=== PATIENT | male | born 1930 | race Two or more races ===

== ENCOUNTER 2020-05-13 15:59 | Inpatient (IN) | payer MEDICARE, MEDICAID ==
[~2020-05-13] VITALS: Ht 160 cm; Wt 63.5 kg
[2020-05-13] MEDS ORDERED: dilTIAZem HCl 25mg/5ml Inj IVP ONE ×2 (16:15→18:15)
[2020-05-13 16:20] VITALS: BP 138/98
--- NOTE | 2020-05-13 16:45 | Emergency Room Report ---
History of Present Illness General Chief Complaint: Altered Level of Consciousness Source: Patient, Family Member, EMS Present Illness HPI Patient has been ill for 1 week. His son came from out of town to help take care of him. Usually he is able to ambulate to the bathroom at night the last night he was confused and could not. His son states that the patient could not understand him. He has been refusing to go into the hospital. Today he was still confused so the son called 911. The son is concerned that his father was suffering from a stroke acutely. The patient is unable to answer questions at this time. The patient is been complaining of shortness of breath. Apparently he has been denying any pain. This is according to his son. According to younger son. h/o aortic stenosis and mitral valve disease. EF 25- 30%. Not taking meds (except for lasix) for 2 weeks. Status post coronary artery bypass graft surgery. Hypercholesterolemia Patient also has a history of thyroid disease on Synthroid. Allergies: Coded Allergies: No Known Allergies (Unverified , 05/13/20) COVID-19 Screening Contact w/high risk pt: No Experienced COVID-19 symptoms?: No COVID-19 Testing performed SLUBBER HAND: No Patient History Limited by: medical condition Past Medical History: CHF, other - Aortic stenosis Past Surgical History: CABG Social History Narrative and living with Reviewed Nursing Documentation: PMH: Agreed; PSxH: Agreed Nursing Documentation-PMH Past Medical History: No History, Except For Hx Cardiac Problems: Yes - cardiac surgery 20 years ago, CHF Hx Hypertension: Yes Review of Systems All Other Systems: limited Physical Exam Vital Signs Date Time Temp Pulse Resp B/P (MAP) Pulse Ox O2 Delivery O2 Flow Rate FiO2 05/13/20 16:02 98.1 130 20 138/98 (111) 98 Nasal Cannula Sp02 EP Interpretation: reviewed, normal - However on repeat oximetry is low as interpreted by me General Appearance: moderate distress Head: normocephalic, atraumatic Eyes: bilateral eye PERRL, bilateral eye EOMI, bilateral eye other - Patient crusting bilaterally ENT: dry mucus membranes Respiratory: respiratory distress, accessory muscle use, crackles Cardiovascular #1: tachycardia, irregularly irregular, edema - Trace bilaterally Cardiovascular #2: 2+ radial (R) Gastrointestinal: non tender, soft, decreased bowel sounds Musculoskeletal: back normal, no calf tenderness Neurologic: alert - But confused, sensory intact, motor weakness - Generalized Procedures Critical Care Time Critical Care Time Total Critical Care Time: 115 min bedside evaluation and treatment excludes procedures (EKG). Reason for critical care: Sepsis, pneumonia, rapid atrial fibrillation, repeat evaluations, respiratory insufficiency requiring BiPAP, discussion with family Possible complications: hypotension, hypertension, [place], shock, arrhythmias, metabolic acidosis, end organ damage, respiratory failure. Interventions: Diltiazem, antibiotics, sepsis resuscitation, repeat evaluations, history from family, repeat fluid boluses in the face of a history of congestive heart failure Course: Patient presents in moderate distress with atrial fibrillation with rapid ventricular response rate and altered mental status with hypoxia. Distal diltiazem administered with control of rate. Patient placed on oxygen and fluid bolus and antibiotics initiated for the possibility of pneumonia. Heart rate again increased and diltiazem repeated. Patient reevaluated by me and appearing mottled and with respiratory difficulty. BiPAP initiated. Increased level of care ordered. Discussion with son reveals history of aortic stenosis with e jection fraction of 25 to 30%. Lactate returns elevated. Second fluid bolus administered however due to the history of congestive heart failure and aortic stenosis judicious fluid replacement ordered. Patient improved on BiPAP. Patient admitted to ICU. Discussion with family a second time. Covid test initially reported as positive but then with rechecking lab was actually neg ative. Consultations: nursing staff, EMS, family, respiratory therapy, admitting physician Performed by: Dr. Godwin Tolerated well condition = critical Medical Decision Making Diagnostic Impression: Primary Impression: Hypoxia Additional Impressions: Rapid atrial fibrillation Altered level of consciousness Aortic stenosis Qualified Codes: I35.0 - Nonrheumatic aortic (valve) stenosis New onset atrial fibrillation COVID-19 ruled out by laboratory testing Pneumonia Qualified Codes: J18.9 - Pneumonia, unspecified organism ER Course Patient presents with hypoxia altered mental status and rapid heart rate. Differential includes acute myocardial infarction, congestive heart failure, pulmonary embolus, COVID-19 amongst others. Patient evaluated with EKG, chest x-ray and labs. Patient has dry mucous membranes and a fluid bolus will be administered. In addition patient will receive diltiazem IV patient is placed on a quality assurance monitor final. 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 EKG with atrial fibrillation with rapid ventricular response with PVCs. After diltiazem heart rate to 84. Blood pressure 141/81, respiratory rate of 28 with a pulse oximetry is 92% 1645 Chest x-ray with possible right-sided infiltrate. Antibiotics ordered. Labs with elevated white count. Many labs pending. Patient in more distress. HR again elevated. Mottled. BiPAP ordered. (Patient removed mask - restraints ordered). Still responsive. Nonfocal neurologic exam. Sepsis reevaluation 1615 Rate better 80s-90s post repeat diltiazem. 1822 ABG with metabolic acidosis. Improved on BiPAP, not mottled - less work of breathing. 1755 Lactate elevated (lab return 1800) Bolus 500 more. Not 30 ml/kg as elevated BNP and history of congestive heart failure. COVID + return. Dexamethasone ordered. Actually lab resulted COVID as negative (unsure where miscommunication was). Patient greatly improved on BiPAP. Patient admitted to ICU. Laboratory Tests Test 05/13/20 17:30 05/13/20 18:11 05/13/20 18:48 05/13/20 20:02 White Blood Count 12.0 K/UL (4.8-10.8) H Red Blood Count 4.39 M/UL (4.70-6.10) L Hemoglobin 13.3 G/DL (14.2-18.0) L Hematocrit 41.1 % (42.0-52.0) L Mean Corpuscular Volume 94 FL (80-99) Mean Corpuscular Hemoglobin 30.2 PG (27.0-31.0) Mean Corpuscular Hemoglobin Concent 32.3 G/DL (32.0-36.0) Red Cell Distribution Width 14.0 % (11.6-14.8) Platelet Count 188 K/UL (150-450) Mean Platelet Volume 7.7 FL (6.5-10.1) Neutrophils (%) (Auto) 80.6 % (45.0-75.0) H Lymphocytes (%) (Auto) 6.4 % (20.0-45.0) L Monocytes (%) (Auto) 12.7 % (1.0-10.0) H Eosinophils (%) (Auto) 0.1 % (0.0-3.0) Basophils (%) (Auto) 0.3 % (0.0-2.0) Prothrombin Time 14.0 SEC (9.30-11.50) H Prothrombin Time INR 1.3 (0.9-1.1) H Activated Partial Thromboplast Time 27 SEC (23-33) Sodium Level 133 MMOL/L (136-145) L Potassium Level 3.9 MMOL/L (3.5-5.1) Chloride Level 101 MMOL/L (98-107) Carbon Dioxide Level 20 MMOL/L (21-32) L Anion Gap 12 mmol/L (5-15) Blood Urea Nitrogen 51 mg/dL (7-18) H Creatinine 1.7 MG/DL (0.55-1.30) H Estimated Glomerular Filtration Rate 38.2 mL/min (>60) Glucose Level 117 MG/DL (74-106) H Lactic Acid Level 4.70 mmol/L (0.4-2.0) H 4.10 mmol/L (0.66-2.22) H Calcium Level 8.5 MG/DL (8.5-10.1) Magnesium Level 2.3 MG/DL (1.8-2.4) Ferritin 103 NG/ML (8-388) Total Bilirubin 1.4 MG/DL (0.2-1.0) H Direct Bilirubin 0.4 MG/DL (0.0-0.3) H Aspartate Amino Transferase (AST) 251 U/L (15-37) H Alanine Aminotransferase (ALT) 363 U/L (12-78) H Alkaline Phosphatase 128 U/L (46-116) H Lactate Dehydrogenase 320 U/L (81-234) H Total Creatine Kinase 64 U/L (26-308) Troponin I 0.062 ng/mL (0.000-0.056) C-Reactive Protein, Quantitative 5.5 mg/dL (0.00-0.90) H Pro-B-Type Natriuretic Peptide 90463 pg/mL (0-125) H Total Protein 7.0 G/DL (6.4-8.2) Albumin 3.2 G/DL (3.4-5.0) L Globulin 3.8 g/dL Albumin/Globulin Ratio 0.8 (1.0-2.7) L Lipase 139 U/L (73-393) Arterial Blood pH 7.274 (7.350-7.450) Arterial Blood Partial Pressure CO2 37.7 mmHg (35.0-45.0) Arterial Blood Partial Pressure O2 87.3 mmHg (75.0-100.0) Arterial Blood HCO3 17.1 mmol/L (22.0-26.0) *L Arterial Blood Oxygen Saturation 94.6 % (95-100) L Arterial Blood Base Excess -9.0 (-2-2) L Amaury Test Positive Urine Color Pale yellow Urine Appearance Slightly cloudy Urine pH 5 (4.5-8.0) Urine Specific [place] 1.020 (1.005-1.035) Urine Protein 2+ (NEGATIVE) H Urine Glucose (UA) Negative (NEGATIVE) Urine Ketones 1+ (NEGATIVE) H Urine Blood Negative (NEGATIVE) Urine Nitrite Negative (NEGATIVE) Urine Bilirubin Negative (NEGATIVE) Urine Urobilinogen 1 MG/DL (0.0-1.0) H Urine Leukocyte Esterase 1+ (NEGATIVE) H Urine RBC 0 /HPF (0 - 0) Urine WBC 0-2 /HPF (0 - 0) Urine Squamous Epithelial Cells Occasional /LPF Urine Bacteria Occasional /HPF (NONE) Urine Hyaline Casts 5-10 /LPF (NONE) H Test 05/13/20 22:40 Arterial Blood pH 7.400 (7.350-7.450) Arterial Blood Partial Pressure CO2 30.5 mmHg (35.0-45.0) L Arterial Blood Partial Pressure O2 240.5 mmHg (75.0-100.0) H Arterial Blood HCO3 18.5 mmol/L (22.0-26.0) L Arterial Blood Oxygen Saturation 99.0 % (95-100) Arterial Blood Base Excess -5.2 (-2-2) L Amaury Test Microbiology Date/Time Source Procedure Growth Status 05/13/20 18:20 Nasopharynx SARS-CoV-2 RdRp Gene Assay - Final Complete EKG Diagnostic Results Rate: tachycardiac Rhythm: other - Atrial fibrillation rate [address]-T wave changes Rhythm Strip Diag. Results EP Interpretation: yes Rhythm: other - rapid a fib and pvcs rate 124 Chest X-Ray Diagnostic Results Chest X-Ray Diagnostic Results : Chest X-Ray Ordered: Yes # of Views/Limited/Complete: 1 View Indication: Shortness of Breath EP Interpretation: Yes Interpretation: no pneumothorax, other - RLL infiltrate vs CHF, cardiomegally Impression: Other Electronically Signed by: Electronically signed by Phi Godwin MD Last Vital Signs Date Time Temp Pulse Resp B/P (MAP) Pulse Ox O2 Delivery O2 Flow Rate FiO2 05/14/20 00:00 120 25 110/71 (84) 97 05/14/20 00:00 Bi-pap 80.0 05/13/20 23:00 98.0 05/13/20 22:50 70 Status: improved Disposition: ADMITTED INPATIENT Condition: Critical Phi Godwin MD May 13, 2020 16:45
[2020-05-13] MEDS ORDERED: Azithromycin 500 MG in NS 275 ML IV ONE (17:00)
[2020-05-13] MEDS ORDERED: cefTRIAXone 1 GM in NS 55 ML IVPB ONE (17:00)
--- NOTE | 2020-05-13 17:09 | Diagnostic Imaging Report ---
Indication: Shortness of breath Technique: One view of the chest Comparison: None Findings: There is extensive dense consolidation involving the right mid and lower lung. There are bilateral pleural effusions, right greater than left. There is mild interstitial congestion bilaterally. Impression: Dense consolidation involving much of the right middle and lower lung, likely pneumonia Right greater than left pleural effusions Mild interstitial edema
[2020-05-13] MEDS ORDERED: FUROSEMIDE40 MG ORAL (17:58)
[2020-05-13] MEDS ORDERED: VITAMIN D325 MC1 PO (17:58)
[2020-05-13] MEDS ORDERED: CLOPIDOGREL75 MG ORAL (17:58)
[2020-05-13] MEDS ORDERED: CRESTOR10 M2 ORAL (17:58)
[2020-05-13] MEDS ORDERED: PROSCAR5 MG ORAL (17:58)
[2020-05-13] MEDS ORDERED: LEVOTHYROXINE125 MCG ORAL (17:58)
[2020-05-13] MEDS ORDERED: METOPROLOL TART25 MG ORAL (17:58)
[2020-05-13] MEDS ORDERED: MIRTAZAPINE15 M3 ORAL (17:58)
[2020-05-13 19:04] LABS: APPEARANCE,URINE SLIGHTLY CLOUDY; BILIRUBIN, URINE NEGATIVE (NEGATIVE); GLUCOSE, URINE (UA) NEGATIVE (NEGATIVE); KETONES,URINE 1+ (NEGATIVE); LEUKOCYTE ESTERASE ,URINE 1+ (NEGATIVE); NITRITE,URINE NEGATIVE (NEGATIVE); PH,URINE 5 (4.5-8.0); PROTEIN,URINE 2+ (NEGATIVE); UROBILINOGEN,URINE 1 MG/DL (0.0-1.0)
[2020-05-13 19:08] LABS: BASOPHILS % (AUTO) 0.3 % (0.0-2.0); EOSINOPHILS % (AUTO) 0.1 % (0.0-3.0); HEMATOCRIT 41.1 % (42.0-52.0); HEMOGLOBIN 13.3 G/DL (14.2-18.0); LYMPHOCYTES % (AUTO) 6.4 % (20.0-45.0); MEAN CORPUSCULAR VOLUME 94 FL (80-99); MONOCYTES % (AUTO) 12.7 % (1.0-10.0); NEUTROPHILS % (AUTO) 80.6 % (45.0-75.0); PLATELET COUNT 188 K/UL (150-450); RED BLOOD COUNT 4.39 M/UL (4.70-6.10)
[2020-05-13 19:09] LABS: COLOR,URINE PALE YELLOW
[2020-05-13 19:15] VITALS: BP 134/87
[2020-05-13 19:21] LABS: ANION GAP 12 mmol/L (5-15); BLOOD UREA NITROGEN 51 mg/dL (7-18); CALCIUM 8.5 MG/DL (8.5-10.1); CARBON DIOXIDE 20 MMOL/L (21-32); CHLORIDE 101 MMOL/L (98-107); CREATININE 1.7 MG/DL (0.55-1.30); POTASSIUM 3.9 MMOL/L (3.5-5.1); SODIUM 133 MMOL/L (136-145)
[2020-05-13 19:23] LABS: INR 1.3 (0.9-1.1)
[2020-05-13] MEDS ORDERED: dexAMETHasone 10mg/ml Inj IV ONE (19:30)
[2020-05-13 19:34] LABS: ALANINE AMINOTRANSFERASE 363 U/L (12-78); ALBUMIN 3.2 G/DL (3.4-5.0); ALBUMIN/GLOBULIN RATIO 0.8 (1.0-2.7); ALKALINE PHOSPHATASE 128 U/L (46-116); ASPARTATE AMINO TRANSFERASE 251 U/L (15-37); BILIRUBIN,TOTAL 1.4 MG/DL (0.2-1.0); CREATINE KINASE 64 U/L (26-308); FERRITIN 103 NG/ML (8-388); LACTATE DEHYDROGENASE 320 U/L (81-234)
[2020-05-13 19:42] LABS: BILIRUBIN,DIRECT 0.4 MG/DL (0.0-0.3)
[2020-05-13 21:08] VITALS: BP 120/77
[2020-05-13 22:00] VITALS: BP 106/65
[2020-05-13 23:00] VITALS: BP 106/73
[2020-05-13] MEDS ORDERED: Heparin 5000 units/ml inj IV SCH (23:00)
[2020-05-13] MEDS ORDERED: Heparin 25,000u/D5W 500ml 500 ML IV SCH (23:00)
[2020-05-14] VITALS (34 sets, daily range): BP systolic 72–169; BP diastolic 35–102
[2020-05-14] MEDS ORDERED: Piperacillin/Tazobactam 2.25 GM in NS 55 ML IVPB SCH ×2
[2020-05-14] MEDS: Ipratropium 0.02% Inh Soln 2.5ml UD HHN SCH ×4 (01:27→18:50)
[2020-05-14] MEDS ORDERED: Vancomycin 1gm in D5W 275ml IVPB ONE (02:00)
[2020-05-14 05:34] LABS: HEMATOCRIT 41.6 % (42.0-52.0); HEMOGLOBIN 12.8 G/DL (14.2-18.0); MEAN CORPUSCULAR VOLUME 97 FL (80-99); PLATELET COUNT 159 K/UL (150-450); RED BLOOD COUNT 4.31 M/UL (4.70-6.10); RED CELL DISTRIBUTION WIDTH 14.2 % (11.6-14.8); WHITE BLOOD COUNT 9.2 K/UL (4.8-10.8)
[2020-05-14 06:03] LABS: ALBUMIN 2.9 G/DL (3.4-5.0); ALBUMIN/GLOBULIN RATIO 0.9 (1.0-2.7); BILIRUBIN,TOTAL 1.2 MG/DL (0.2-1.0); CALCIUM 7.9 MG/DL (8.5-10.1); CREATININE 1.9 MG/DL (0.55-1.30)
[2020-05-14 06:09] LABS: BILIRUBIN,DIRECT 0.5 MG/DL (0.0-0.3)
[2020-05-14] MEDS: Heparin 25,000u/D5W 500ml 500 ML IV SCH (07:17)
--- NOTE | 2020-05-14 08:21 | Neurology Progress Note ---
Interim History Interim History Interim History Pt admitted for AMS. per report he has been confused for 2 days. Pt is tachy, afib RVR, heparin ordered. h/o aortic stenosis and mitral valve disease. EF 25-30%. Not taking meds (except for lasix) for 2 weeks. Status post coronary artery bypass graft surgery. pt on restraints, slurring, non focal Objective Physical Exam Last Vital Signs Date Time Temp Pulse Resp B/P (MAP) Pulse Ox O2 Delivery O2 Flow Rate FiO2 05/14/20 06:00 116 15 101/84 (90) 05/14/20 04:00 Bi-pap 80.0 05/14/20 04:00 98 05/14/20 04:00 60 05/14/20 03:00 97.6 Laboratory Tests Test 05/13/20 17:30 05/13/20 18:11 05/13/20 18:48 05/13/20 20:02 White Blood Count 12.0 K/UL (4.8-10.8) H Red Blood Count 4.39 M/UL (4.70-6.10) L Hemoglobin 13.3 G/DL (14.2-18.0) L Hematocrit 41.1 % (42.0-52.0) L Mean Corpuscular Volume 94 FL (80-99) Mean Corpuscular Hemoglobin 30.2 PG (27.0-31.0) Mean Corpuscular Hemoglobin Concent 32.3 G/DL (32.0-36.0) Red Cell Distribution Width 14.0 % (11.6-14.8) Platelet Count 188 K/UL (150-450) Mean Platelet Volume 7.7 FL (6.5-10.1) Neutrophils (%) (Auto) 80.6 % (45.0-75.0) H Lymphocytes (%) (Auto) 6.4 % (20.0-45.0) L Monocytes (%) (Auto) 12.7 % (1.0-10.0) H Eosinophils (%) (Auto) 0.1 % (0.0-3.0) Basophils (%) (Auto) 0.3 % (0.0-2.0) Prothrombin Time 14.0 SEC (9.30-11.50) H Prothromb Time International Ratio 1.3 (0.9-1.1) H Activated Partial Thromboplast Time 27 SEC (23-33) Sodium Level 133 MMOL/L (136-145) L Potassium Level 3.9 MMOL/L (3.5-5.1) Chloride Level 101 MMOL/L (98-107) Carbon Dioxide Level 20 MMOL/L (21-32) L Anion Gap 12 mmol/L (5-15) Blood Urea Nitrogen 51 mg/dL (7-18) H Creatinine 1.7 MG/DL (0.55-1.30) H Estimat Glomerular Filtration Rate 38.2 mL/min (>60) Glucose Level 117 MG/DL (74-106) H Lactic Acid Level 4.70 mmol/L (0.4-2.0) H 4.10 mmol/L (0.66-2.22) H Calcium Level 8.5 MG/DL (8.5-10.1) Magnesium Level 2.3 MG/DL (1.8-2.4) Ferritin 103 NG/ML (8-388) Total Bilirubin 1.4 MG/DL (0.2-1.0) H Direct Bilirubin 0.4 MG/DL (0.0-0.3) H Aspartate Amino Transf (AST/SGOT) 251 U/L (15-37) H Alanine Aminotransferase (ALT/SGPT) 363 U/L (12-78) H Alkaline Phosphatase 128 U/L (46-116) H Lactate Dehydrogenase 320 U/L (81-234) H Total Creatine Kinase 64 U/L (26-308) Troponin I 0.062 ng/mL (0.000-0.056) C-Reactive Protein, Quantitative 5.5 mg/dL (0.00-0.90) H Pro-B-Type Natriuretic Peptide 11576 pg/mL (0-125) H Total Protein 7.0 G/DL (6.4-8.2) Albumin 3.2 G/DL (3.4-5.0) L Globulin 3.8 g/dL Albumin/Globulin Ratio 0.8 (1.0-2.7) L Lipase 139 U/L (73-393) Arterial Blood pH 7.274 (7.350-7.450) Arterial Blood Partial Pressure CO2 37.7 mmHg (35.0-45.0) Arterial Blood Partial Pressure O2 87.3 mmHg (75.0-100.0) Arterial Blood HCO3 17.1 mmol/L (22.0-26.0) *L Arterial Blood Oxygen Saturation 94.6 % (95-100) L Arterial Blood Base Excess -9.0 (-2-2) L Amaury Test Positive Urine Color Pale yellow Urine Appearance Slightly cloudy Urine pH 5 (4.5-8.0) Urine Specific [place] 1.020 (1.005-1.035) Urine Protein 2+ (NEGATIVE) H Urine Glucose (UA) Negative (NEGATIVE) Urine Ketones 1+ (NEGATIVE) H Urine Blood Negative (NEGATIVE) Urine Nitrite Negative (NEGATIVE) Urine Bilirubin Negative (NEGATIVE) Urine Urobilinogen 1 MG/DL (0.0-1.0) H Urine Leukocyte Esterase 1+ (NEGATIVE) H Urine RBC 0 /HPF (0 - 0) Urine WBC 0-2 /HPF (0 - 0) Urine Squamous Epithelial Cells Occasional /LPF Urine Bacteria Occasional /HPF (NONE) Urine Hyaline Casts 5-10 /LPF (NONE) H Test 05/13/20 22:40 05/14/20 05:00 Arterial Blood pH 7.400 (7.350-7.450) Arterial Blood Partial Pressure CO2 30.5 mmHg (35.0-45.0) L Arterial Blood Partial Pressure O2 240.5 mmHg (75.0-100.0) H Arterial Blood HCO3 18.5 mmol/L (22.0-26.0) L Arterial Blood Oxygen Saturation 99.0 % (95-100) Arterial Blood Base Excess -5.2 (-2-2) L Amaury Test White Blood Count 9.2 K/UL (4.8-10.8) Red Blood Count 4.31 M/UL (4.70-6.10) L Hemoglobin 12.8 G/DL (14.2-18.0) L Hematocrit 41.6 % (42.0-52.0) L Mean Corpuscular Volume 97 FL (80-99) Mean Corpuscular Hemoglobin 29.8 PG (27.0-31.0) Mean Corpuscular Hemoglobin Concent 30.9 G/DL (32.0-36.0) L Red Cell Distribution Width 14.2 % (11.6-14.8) Platelet Count 159 K/UL (150-450) Mean Platelet Volume 9.1 FL (6.5-10.1) Neutrophils (%) (Auto) % (45.0-75.0) Lymphocytes (%) (Auto) % (20.0-45.0) Monocytes (%) (Auto) % (1.0-10.0) Eosinophils (%) (Auto) % (0.0-3.0) Basophils (%) (Auto) % (0.0-2.0) Neutrophils % (Manual) Pending Lymphocytes % (Manual) Pending Platelet Estimate Pending Platelet Morphology Pending Activated Partial Thromboplast Time 122 SEC (23-33) H D-Dimer 6.64 mg/L FEU (0.00-0.49) H Sodium Level 137 MMOL/L (136-145) Potassium Level 4.0 MMOL/L (3.5-5.1) Chloride Level 104 MMOL/L (98-107) Carbon Dioxide Level 22 MMOL/L (21-32) Anion Gap 11 mmol/L (5-15) Blood Urea Nitrogen 51 mg/dL (7-18) H Creatinine 1.9 MG/DL (0.55-1.30) H Estimat Glomerular Filtration Rate 33.6 mL/min (>60) Glucose Level 174 MG/DL (74-106) H Lactic Acid Level 1.90 mmol/L (0.4-2.0) Calcium Level 7.9 MG/DL (8.5-10.1) L Total Bilirubin 1.2 MG/DL (0.2-1.0) H Direct Bilirubin 0.5 MG/DL (0.0-0.3) H Aspartate Amino Transf (AST/SGOT) 152 U/L (15-37) H Alanine Aminotransferase (ALT/SGPT) 285 U/L (12-78) H Alkaline Phosphatase 118 U/L (46-116) H Troponin I 0.056 ng/mL (0.000-0.056) Total Protein 6.3 G/DL (6.4-8.2) L Albumin 2.9 G/DL (3.4-5.0) L Globulin 3.4 g/dL Albumin/Globulin Ratio 0.9 (1.0-2.7) L Thyroid Stimulating Hormone (TSH) 0.672 uiU/mL (0.358-3.740) Head: normocophalic Neck: no rigidity EENT: benign Neurologic Exam Objective alert, confused, tangential slurring non focal on restraints Impression/Recommendations Problems: (1) Pneumonia (2) New onset atrial fibrillation (3) COVID-19 ruled out by laboratory testing (4) Aortic stenosis (5) Hypoxia (6) Altered level of consciousness (7) Rapid atrial fibrillation Diagnostic Impression Encephalopathy, likely metabolic, rule out vascular given afib RVR non focal exam Afib cont heparin iv mri brain tele cont atb fu cultures Kj Quinteros MD May 14, 2020 08:21
[2020-05-14] MEDS ORDERED: dilTIAZem Premix 125mg/125ml 125 ML IVPB SCH ×2 (09:15→14:00)
[2020-05-14] MEDS: Aspirin EC 81mg tab ORAL SCH (09:34)
[2020-05-14] MEDS: Levothyroxine 125mcg tab ORAL SCH (09:34)
[2020-05-14] MEDS: Zoysn 3.37gm in NS 100ML IVPB SCH ×2 (09:38→18:09)
[2020-05-14 10:03] LABS: PHOSPHORUS 4.3 MG/DL (2.5-4.9)
--- NOTE | 2020-05-14 10:55 | History and Physical ---
Erika An ORAL SURGERY ASSISTANT 05/14/20 1055: History of Present Illness General Date patient seen: May 14, 2020 Time patient seen: 09:30 Reason for Hospitalization: Altered Level of Consciousness Present Illness HPI 89 years old male with past medical history of congestive heart failure, hypertension, cardiac surgery years ago, BPH, was brought by paramedics due to altered mental status. Last night patient was confused and was not able to ambulate to the bathroom. Usually he was able to do so. Patient was confused in the morning as well as per his son, patient did not understand what his son was asking him He refused to go to the hospital , and son subsequently called paramedics. Upon evaluation patient was tachycardic with heart rate 130 and hypoxic , in respiratory distress . Patient initially was placed on nasal cannula , but due to increased work of breathing, later was placed on the BiPAP. Laboratory work-up revealed leukocytosis WBC 12, hemoglobin 13.3 , hematocrit 41.1, platelet count 188. ABG revealed metabolic acidosis with pH 7.27, bicarb 17.1. BUN 51, creatinine 1.7. Sodium 133. CO2 20. Glucose 117. Troponin minimally elevated 0.062 ECG with A fib with RVR Urinalysis revealed +2 protein, +1 leukocyte esterase , no evidence of UTI. Chest x-ray revealed dense consolidation involving much of the right middle and lower lung, likely pneumonia ; right greater than the left pleural effusion ; mild interstitial edema. Rapid COVID-19 was negative. Patient admitted to ICU for further management. Allergies: Coded Allergies: No Known Allergies (Unverified , 05/13/20) COVID-19 Screening Contact w/high risk pt: No Experienced COVID-19 symptoms?: No Medication History Scheduled Cholecalciferol (Vitamin D3) (Vitamin D3*), 25 MCG PO DAILY, (Reported) Clopidogrel* (Clopidogrel*), 75 MG ORAL DAILY, (Reported) Finasteride* (Proscar*), 5 MG ORAL DAILY, (Reported) Furosemide* (Lasix*), 40 MG ORAL DAILY, (Reported) Levothyroxine Sodium* (Levothyroxine Sodium*), 100 MCG ORAL DAILY, (Reported) Metoprolol Tartrate* (Metoprolol Tartrate*), 25 MG ORAL EVERY 12 HOURS, (Reported) Mirtazapine* (Mirtazapine*), 45 MG ORAL BEDTIME, (Reported) Rosuvastatin Calcium* (Crestor*), 5 MG ORAL DAILY, (Reported) Patient History History Provided By: Medical Record Healthcare decision maker Resuscitation status Fukk code Advanced Directive on File Review of Systems ROS Narrative unable to obtain due to patient's AMS Physical Exam General Appearance: other - on BiPAP 12 FiO2 60% [place]alander speaking elderly male, alert, responsive to simple wuestions but confused overall , in mild resp distress Lines, tubes and drains: peripheral HEENT: normocephalic, atraumatic, anicteric Neck: supple Respiratory/Chest: no accessory muscle use, respiratory distress - mild , other - scattered rhoncho R>L Cardiovascular/Chest: irregularly irregular - A fib with RVR Abdomen: normal bowel sounds, non tender, soft Genitourinary/Rectal: triana Extremities: non-tender, normal inspection, no calf tenderness, normal capillary refill Skin Exam: warm/dry Neurologic: abnormal gait, alert, responsive - to simple questions, forgetful and confused Musculoskeletal: atrophy - BLE Last 24 Hour Vital Signs Date Time Temp Pulse Resp B/P (MAP) Pulse Ox O2 Delivery O2 Flow Rate FiO2 05/14/20 09:34 142 140/88 05/14/20 07:24 152 33 91 60 05/14/20 06:00 116 15 101/84 (90) 05/14/20 05:00 120 18 105/81 (89) 05/14/20 04:00 Bi-pap 80.0 05/14/20 04:00 108 05/14/20 04:00 128 24 100/58 (72) 98 05/14/20 04:00 60 05/14/20 03:00 97.6 116 17 122/86 (98) 99 05/14/20 02:49 124 21 98 60 05/14/20 02:00 116 24 117/85 (96) 98 05/14/20 01:28 115 22 98 Bi-Pap 70 119 23 98 70 05/14/20 01:00 121 25 127/99 (108) 97 05/14/20 00:00 70 05/14/20 00:00 120 25 110/71 (84) 97 05/14/20 00:00 Bi-pap 80.0 05/13/20 23:00 98.0 110 21 106/73 (84) 98 05/13/20 22:50 113 21 98 70 05/13/20 22:00 80 05/13/20 22:00 115 22 106/65 (79) 96 05/13/20 22:00 119 29 106/65 (79) 99 05/13/20 21:16 Bi-Pap 80.0 05/13/20 21:13 80 05/13/20 21:08 98.8 104 24 120/77 (91) 99 05/13/20 21:00 Bi-pap 80.0 05/13/20 20:40 98.9 120 24 113/74 100 Bi-pap 80 05/13/20 19:27 111 30 100 80 05/13/20 19:15 98.1 96 20 134/87 100 Bi-pap 05/13/20 18:42 100 05/13/20 18:12 135 115/74 05/13/20 16:37 131 141/86 05/13/20 16:20 98.1 130 20 138/98 98 Nasal Cannula 05/13/20 16:20 130 20 Nasal Cannula 05/13/20 16:02 98.1 130 20 138/98 (111) 98 Nasal Cannula Intake and Output 05/13/20 05/14/20 19:00 07:00 Intake Total 830 ml 1021.596 ml Output Total 0 ml 860 ml Balance 830 ml 161.596 ml Intake Oral 0 ml IV Total 830 ml 1021.596 ml Output Urine Total 0 ml 860 ml Laboratory Tests Test 05/13/20 17:30 05/13/20 18:11 05/13/20 18:48 05/13/20 20:02 White Blood Count 12.0 K/UL (4.8-10.8) H Red Blood Count 4.39 M/UL (4.70-6.10) L Hemoglobin 13.3 G/DL (14.2-18.0) L Hematocrit 41.1 % (42.0-52.0) L Mean Corpuscular Volume 94 FL (80-99) Mean Corpuscular Hemoglobin 30.2 PG (27.0-31.0) Mean Corpuscular Hemoglobin Concent 32.3 G/DL (32.0-36.0) Red Cell Distribution Width 14.0 % (11.6-14.8) Platelet Count 188 K/UL (150-450) Mean Platelet Volume 7.7 FL (6.5-10.1) Neutrophils (%) (Auto) 80.6 % (45.0-75.0) H Lymphocytes (%) (Auto) 6.4 % (20.0-45.0) L Monocytes (%) (Auto) 12.7 % (1.0-10.0) H Eosinophils (%) (Auto) 0.1 % (0.0-3.0) Basophils (%) (Auto) 0.3 % (0.0-2.0) Prothrombin Time 14.0 SEC (9.30-11.50) H Prothromb Time International Ratio 1.3 (0.9-1.1) H Activated Partial Thromboplast Time 27 SEC (23-33) Sodium Level 133 MMOL/L (136-145) L Potassium Level 3.9 MMOL/L (3.5-5.1) Chloride Level 101 MMOL/L (98-107) Carbon Dioxide Level 20 MMOL/L (21-32) L Anion Gap 12 mmol/L (5-15) Blood Urea Nitrogen 51 mg/dL (7-18) H Creatinine 1.7 MG/DL (0.55-1.30) H Estimat Glomerular Filtration Rate 38.2 mL/min (>60) Glucose Level 117 MG/DL (74-106) H Lactic Acid Level 4.70 mmol/L (0.4-2.0) H 4.10 mmol/L (0.66-2.22) H Calcium Level 8.5 MG/DL (8.5-10.1) Magnesium Level 2.3 MG/DL (1.8-2.4) Ferritin 103 NG/ML (8-388) Total Bilirubin 1.4 MG/DL (0.2-1.0) H Direct Bilirubin 0.4 MG/DL (0.0-0.3) H Aspartate Amino Transf (AST/SGOT) 251 U/L (15-37) H Alanine Aminotransferase (ALT/SGPT) 363 U/L (12-78) H Alkaline Phosphatase 128 U/L (46-116) H Lactate Dehydrogenase 320 U/L (81-234) H Total Creatine Kinase 64 U/L (26-308) Troponin I 0.062 ng/mL (0.000-0.056) C-Reactive Protein, Quantitative 5.5 mg/dL (0.00-0.90) H Pro-B-Type Natriuretic Peptide 66436 pg/mL (0-125) H Total Protein 7.0 G/DL (6.4-8.2) Albumin 3.2 G/DL (3.4-5.0) L Globulin 3.8 g/dL Albumin/Globulin Ratio 0.8 (1.0-2.7) L Lipase 139 U/L (73-393) Arterial Blood pH 7.274 (7.350-7.450) Arterial Blood Partial Pressure CO2 37.7 mmHg (35.0-45.0) Arterial Blood Partial Pressure O2 87.3 mmHg (75.0-100.0) Arterial Blood HCO3 17.1 mmol/L (22.0-26.0) *L Arterial Blood Oxygen Saturation 94.6 % (95-100) L Arterial Blood Base Excess -9.0 (-2-2) L Amaury Test Positive Urine Color Pale yellow Urine Appearance Slightly cloudy Urine pH 5 (4.5-8.0) Urine Specific [place] 1.020 (1.005-1.035) Urine Protein 2+ (NEGATIVE) H Urine Glucose (UA) Negative (NEGATIVE) Urine Ketones 1+ (NEGATIVE) H Urine Blood Negative (NEGATIVE) Urine Nitrite Negative (NEGATIVE) Urine Bilirubin Negative (NEGATIVE) Urine Urobilinogen 1 MG/DL (0.0-1.0) H Urine Leukocyte Esterase 1+ (NEGATIVE) H Urine RBC 0 /HPF (0 - 0) Urine WBC 0-2 /HPF (0 - 0) Urine Squamous Epithelial Cells Occasional /LPF Urine Bacteria Occasional /HPF (NONE) Urine Hyaline Casts 5-10 /LPF (NONE) H Test 05/13/20 22:40 05/14/20 05:00 05/14/20 10:13 Arterial Blood pH 7.400 (7.350-7.450) 7.236 (7.350-7.450) Arterial Blood Partial Pressure CO2 30.5 mmHg (35.0-45.0) L 37.8 mmHg (35.0-45.0) Arterial Blood Partial Pressure O2 240.5 mmHg (75.0-100.0) H 76.7 mmHg (75.0-100.0) Arterial Blood HCO3 18.5 mmol/L (22.0-26.0) L 15.7 mmol/L (22.0-26.0) *L Arterial Blood Oxygen Saturation 99.0 % (95-100) 91.1 % (95-100) L Arterial Blood Base Excess -5.2 (-2-2) L -11.0 (-2-2) *L Amaury Test N/a White Blood Count 9.2 K/UL (4.8-10.8) Red Blood Count 4.31 M/UL (4.70-6.10) L Hemoglobin 12.8 G/DL (14.2-18.0) L Hematocrit 41.6 % (42.0-52.0) L Mean Corpuscular Volume 97 FL (80-99) Mean Corpuscular Hemoglobin 29.8 PG (27.0-31.0) Mean Corpuscular Hemoglobin Concent 30.9 G/DL (32.0-36.0) L Red Cell Distribution Width 14.2 % (11.6-14.8) Platelet Count 159 K/UL (150-450) Mean Platelet Volume 9.1 FL (6.5-10.1) Neutrophils (%) (Auto) % (45.0-75.0) Lymphocytes (%) (Auto) % (20.0-45.0) Monocytes (%) (Auto) % (1.0-10.0) Eosinophils (%) (Auto) % (0.0-3.0) Basophils (%) (Auto) % (0.0-2.0) Differential Total Cells Counted 100 Neutrophils % (Manual) 94 % (45-75) H Lymphocytes % (Manual) 3 % (20-45) L Monocytes % (Manual) 3 % (1-10) Eosinophils % (Manual) 0 % (0-3) Basophils % (Manual) 0 % (0-2) Band Neutrophils 0 % (0-8) Platelet Estimate Adequate Platelet Morphology Normal Polychromasia 1+ Hypochromasia 1+ Anisocytosis 1+ Activated Partial Thromboplast Time 122 SEC (23-33) H D-Dimer 6.64 mg/L FEU (0.00-0.49) H Sodium Level 137 MMOL/L (136-145) Potassium Level 4.0 MMOL/L (3.5-5.1) Chloride Level 104 MMOL/L (98-107) Carbon Dioxide Level 22 MMOL/L (21-32) Anion Gap 11 mmol/L (5-15) Blood Urea Nitrogen 51 mg/dL (7-18) H Creatinine 1.9 MG/DL (0.55-1.30) H Estimat Glomerular Filtration Rate 33.6 mL/min (>60) Glucose Level 174 MG/DL (74-106) H Lactic Acid Level 1.90 mmol/L (0.4-2.0) Uric Acid 10.1 MG/DL (2.6-7.2) H Calcium Level 7.9 MG/DL (8.5-10.1) L Phosphorus Level 4.3 MG/DL (2.5-4.9) Magnesium Level 2.3 MG/DL (1.8-2.4) Total Bilirubin 1.2 MG/DL (0.2-1.0) H Direct Bilirubin 0.5 MG/DL (0.0-0.3) H Aspartate Amino Transf (AST/SGOT) 152 U/L (15-37) H Alanine Aminotransferase (ALT/SGPT) 285 U/L (12-78) H Alkaline Phosphatase 118 U/L (46-116) H Troponin I 0.056 ng/mL (0.000-0.056) Total Protein 6.3 G/DL (6.4-8.2) L Albumin 2.9 G/DL (3.4-5.0) L Globulin 3.4 g/dL Albumin/Globulin Ratio 0.9 (1.0-2.7) L Thyroid Stimulating Hormone (TSH) 0.672 uiU/mL (0.358-3.740) Microbiology Date/Time Source Procedure Growth Status 05/13/20 18:20 Nasopharynx SARS-CoV-2 RdRp Gene Assay - Final Complete Height (Feet): 5 Height (Inches): 3.00 Weight (Pounds): 140 Medications Current Medications Medications (Trade) Dose Ordered Sig/Adalberto Route PRN Reason Start Time Stop Time Status Last Admin Dose Admin Aspirin (Ecotrin) 81 mg DAILY ORAL 05/14/20 09:00 06/28/20 08:59 05/14/20 09:34 Clopidogrel Bisulfate (Plavix) 75 mg DAILY ORAL 05/14/20 09:00 06/13/20 08:59 05/14/20 09:32 Diltiazem HCl 125 ml @ 10 mls/hr Q24H IVPB 05/14/20 09:15 05/15/20 09:14 05/14/20 09:35 Finasteride (Proscar) 5 mg DAILY ORAL 05/14/20 09:00 08/12/20 08:59 05/14/20 09:34 Heparin Sodium/ Dextrose 500 ml @ 19.051 mls/ hr ADJUST PER PROTOCOL IV 05/14/20 07:00 06/13/20 06:59 05/14/20 07:17 Ipratropium [place] (Atrovent) 500 mcg Q6HRT HHN 05/14/20 01:00 05/19/20 00:59 05/14/20 01:27 Levothyroxine Sodium (Synthroid) 125 mcg DAILY ORAL 05/14/20 09:00 06/13/20 08:59 05/14/20 09:34 Metoprolol Tartrate (Lopressor) 25 mg EVERY 12 HOURS ORAL 05/14/20 09:00 08/12/20 08:59 05/14/20 09:34 Mirtazapine (Remeron) 45 mg BEDTIME ORAL 05/14/20 21:00 08/12/20 20:59 Ondansetron HCl (Zofran) 4 mg Q6H PRN IVP Nausea & Vomiting 05/13/20 22:00 06/12/20 21:59 Piperacillin Sod/ Tazobactam Sod 3.375 gm/Sodium Chloride 110 ml @ 27.5 mls/hr Q8H IVPB 05/14/20 10:00 05/21/20 09:59 05/14/20 09:38 Sodium Chloride 1,000 ml @ 75 mls/hr [id number] IV 05/13/20 22:00 06/12/20 21:59 05/13/20 22:28 Vancomycin HCl (Vanco pharmacy to dose) 1 ea DAILY PRN MISC Per rx protocol 05/13/20 22:00 06/12/20 21:59 Assessment/Plan Assessment/Plan: ASSESSMENT PNA/ CAP vs aspiration BL pleural effusion, R>L Acute hypoxemic respiratory failure, requiring BiPAP A fib with RVR -new onset Acute toxic metabolic encephalopathy ANGELIA ? on CKD Elevated D dimer , r/o DVT, PE Transaminitis Minimally elevated troponin ( liekly due to renal failure) -resolved HTN CAD BPH PLAN OF CARE ICU BiPAP titrate to keep sat above 92, low threshold for intubation ABG noted pulm toilet /HHN fup CXR and ABG abx fup with cx ID eval heparin gtt Cardizem gtt cardio eval ECHO continue DAPT Venous Duplex BLE aspiration precautions IVF monitor renal paramerts., lytes correct lytes as needed avoid nephrotoxics renal US continue Proscar and Flomax nephro eval neuro eval appreciated MRI brain pending GI prophylaxis trend LFT GI eval pending supportive care case discussed and evaluated by supervising physician Dave Leonard MD 05/14/20 1932: History of Present Illness General Date patient seen: May 14, 2020 Time patient seen: 07:00 Reason for Hospitalization: Altered Level of Consciousness Present Illness Allergies: Coded Allergies: No Known Allergies (Unverified , 05/13/20) Medication History Scheduled Cholecalciferol (Vitamin D3) (Vitamin D3*), 25 MCG PO DAILY, (Reported) Clopidogrel* (Clopidogrel*), 75 MG ORAL DAILY, (Reported) Finasteride* (Proscar*), 5 MG ORAL DAILY, (Reported) Furosemide* (Lasix*), 40 MG ORAL DAILY, (Reported) Levothyroxine Sodium* (Levothyroxine Sodium*), 100 MCG ORAL DAILY, (Reported) Metoprolol Tartrate* (Metoprolol Tartrate*), 25 MG ORAL EVERY 12 HOURS, (Reported) Mirtazapine* (Mirtazapine*), 45 MG ORAL BEDTIME, (Reported) Rosuvastatin Calcium* (Crestor*), 5 MG ORAL DAILY, (Reported) Erika An NP May 14, 2020 10:55 Dave Leonard MD May 14, 2020 19:32
--- NOTE | 2020-05-14 12:54 | Cardiology Report ---
APPROVED REPORT EKG Measurement Heart [id number] <Conclusion> Atrial fibrillation with rapid ventricular response Cannot rule out Inferior infarct, age undetermined Cannot rule out Anterior infarct, age undetermined Abnormal ECG
--- NOTE | 2020-05-14 13:50 | Cardiac Electrophysiology PN ---
Subjective Subjective [id number] Objective Last 24 Hour Vital Signs Date Time Temp Pulse Resp B/P (MAP) Pulse Ox O2 Delivery O2 Flow Rate FiO2 05/14/20 09:34 142 140/88 05/14/20 07:24 152 33 91 60 05/14/20 06:00 116 15 101/84 (90) 05/14/20 05:00 120 18 105/81 (89) 05/14/20 04:00 Bi-pap 80.0 05/14/20 04:00 108 05/14/20 04:00 128 24 100/58 (72) 98 05/14/20 04:00 60 05/14/20 03:00 97.6 116 17 122/86 (98) 99 05/14/20 02:49 124 21 98 60 05/14/20 02:00 116 24 117/85 (96) 98 05/14/20 01:28 115 22 98 Bi-Pap 70 119 23 98 70 05/14/20 01:00 121 25 127/99 (108) 97 05/14/20 00:00 70 05/14/20 00:00 120 25 110/71 (84) 97 05/14/20 00:00 Bi-pap 80.0 05/13/20 23:00 98.0 110 21 106/73 (84) 98 05/13/20 22:50 113 21 98 70 05/13/20 22:00 80 05/13/20 22:00 115 22 106/65 (79) 96 05/13/20 22:00 119 29 106/65 (79) 99 05/13/20 21:16 Bi-Pap 80.0 05/13/20 21:13 80 05/13/20 21:08 98.8 104 24 120/77 (91) 99 05/13/20 21:00 Bi-pap 80.0 05/13/20 20:40 98.9 120 24 113/74 100 Bi-pap 80 05/13/20 19:27 111 30 100 80 05/13/20 19:15 98.1 96 20 134/87 100 Bi-pap 05/13/20 18:42 100 05/13/20 18:12 135 115/74 05/13/20 16:37 131 141/86 05/13/20 16:20 98.1 130 20 138/98 98 Nasal Cannula 05/13/20 16:20 130 20 Nasal Cannula 05/13/20 16:02 98.1 130 20 138/98 (111) 98 Nasal Cannula Intake and Output 05/13/20 05/14/20 19:00 07:00 Intake Total 830 ml 1021.596 ml Output Total 0 ml 860 ml Balance 830 ml 161.596 ml Intake Oral 0 ml IV Total 830 ml 1021.596 ml Output Urine Total 0 ml 860 ml Laboratory Tests Test 05/13/20 17:30 05/13/20 18:11 05/13/20 18:48 05/13/20 20:02 White Blood Count 12.0 K/UL (4.8-10.8) H Red Blood Count 4.39 M/UL (4.70-6.10) L Hemoglobin 13.3 G/DL (14.2-18.0) L Hematocrit 41.1 % (42.0-52.0) L Mean Corpuscular Volume 94 FL (80-99) Mean Corpuscular Hemoglobin 30.2 PG (27.0-31.0) Mean Corpuscular Hemoglobin Concent 32.3 G/DL (32.0-36.0) Red Cell Distribution Width 14.0 % (11.6-14.8) Platelet Count 188 K/UL (150-450) Mean Platelet Volume 7.7 FL (6.5-10.1) Neutrophils (%) (Auto) 80.6 % (45.0-75.0) H Lymphocytes (%) (Auto) 6.4 % (20.0-45.0) L Monocytes (%) (Auto) 12.7 % (1.0-10.0) H Eosinophils (%) (Auto) 0.1 % (0.0-3.0) Basophils (%) (Auto) 0.3 % (0.0-2.0) Prothrombin Time 14.0 SEC (9.30-11.50) H Prothromb Time International Ratio 1.3 (0.9-1.1) H Activated Partial Thromboplast Time 27 SEC (23-33) Sodium Level 133 MMOL/L (136-145) L Potassium Level 3.9 MMOL/L (3.5-5.1) Chloride Level 101 MMOL/L (98-107) Carbon Dioxide Level 20 MMOL/L (21-32) L Anion Gap 12 mmol/L (5-15) Blood Urea Nitrogen 51 mg/dL (7-18) H Creatinine 1.7 MG/DL (0.55-1.30) H Estimat Glomerular Filtration Rate 38.2 mL/min (>60) Glucose Level 117 MG/DL (74-106) H Lactic Acid Level 4.70 mmol/L (0.4-2.0) H 4.10 mmol/L (0.66-2.22) H Calcium Level 8.5 MG/DL (8.5-10.1) Magnesium Level 2.3 MG/DL (1.8-2.4) Ferritin 103 NG/ML (8-388) Total Bilirubin 1.4 MG/DL (0.2-1.0) H Direct Bilirubin 0.4 MG/DL (0.0-0.3) H Aspartate Amino Transf (AST/SGOT) 251 U/L (15-37) H Alanine Aminotransferase (ALT/SGPT) 363 U/L (12-78) H Alkaline Phosphatase 128 U/L (46-116) H Lactate Dehydrogenase 320 U/L (81-234) H Total Creatine Kinase 64 U/L (26-308) Troponin I 0.062 ng/mL (0.000-0.056) C-Reactive Protein, Quantitative 5.5 mg/dL (0.00-0.90) H Pro-B-Type Natriuretic Peptide 10422 pg/mL (0-125) H Total Protein 7.0 G/DL (6.4-8.2) Albumin 3.2 G/DL (3.4-5.0) L Globulin 3.8 g/dL Albumin/Globulin Ratio 0.8 (1.0-2.7) L Lipase 139 U/L (73-393) Arterial Blood pH 7.274 (7.350-7.450) Arterial Blood Partial Pressure CO2 37.7 mmHg (35.0-45.0) Arterial Blood Partial Pressure O2 87.3 mmHg (75.0-100.0) Arterial Blood HCO3 17.1 mmol/L (22.0-26.0) *L Arterial Blood Oxygen Saturation 94.6 % (95-100) L Arterial Blood Base Excess -9.0 (-2-2) L Amaury Test Positive Urine Color Pale yellow Urine Appearance Slightly cloudy Urine pH 5 (4.5-8.0) Urine Specific [place] 1.020 (1.005-1.035) Urine Protein 2+ (NEGATIVE) H Urine Glucose (UA) Negative (NEGATIVE) Urine Ketones 1+ (NEGATIVE) H Urine Blood Negative (NEGATIVE) Urine Nitrite Negative (NEGATIVE) Urine Bilirubin Negative (NEGATIVE) Urine Urobilinogen 1 MG/DL (0.0-1.0) H Urine Leukocyte Esterase 1+ (NEGATIVE) H Urine RBC 0 /HPF (0 - 0) Urine WBC 0-2 /HPF (0 - 0) Urine Squamous Epithelial Cells Occasional /LPF Urine Bacteria Occasional /HPF (NONE) Urine Hyaline Casts 5-10 /LPF (NONE) H Test 05/13/20 22:40 05/14/20 05:00 05/14/20 10:13 Arterial Blood pH 7.400 (7.350-7.450) 7.236 (7.350-7.450) Arterial Blood Partial Pressure CO2 30.5 mmHg (35.0-45.0) L 37.8 mmHg (35.0-45.0) Arterial Blood Partial Pressure O2 240.5 mmHg (75.0-100.0) H 76.7 mmHg (75.0-100.0) Arterial Blood HCO3 18.5 mmol/L (22.0-26.0) L 15.7 mmol/L (22.0-26.0) *L Arterial Blood Oxygen Saturation 99.0 % (95-100) 91.1 % (95-100) L Arterial Blood Base Excess -5.2 (-2-2) L -11.0 (-2-2) *L Amaury Test N/a White Blood Count 9.2 K/UL (4.8-10.8) Red Blood Count 4.31 M/UL (4.70-6.10) L Hemoglobin 12.8 G/DL (14.2-18.0) L Hematocrit 41.6 % (42.0-52.0) L Mean Corpuscular Volume 97 FL (80-99) Mean Corpuscular Hemoglobin 29.8 PG (27.0-31.0) Mean Corpuscular Hemoglobin Concent 30.9 G/DL (32.0-36.0) L Red Cell Distribution Width 14.2 % (11.6-14.8) Platelet Count 159 K/UL (150-450) Mean Platelet Volume 9.1 FL (6.5-10.1) Neutrophils (%) (Auto) % (45.0-75.0) Lymphocytes (%) (Auto) % (20.0-45.0) Monocytes (%) (Auto) % (1.0-10.0) Eosinophils (%) (Auto) % (0.0-3.0) Basophils (%) (Auto) % (0.0-2.0) Differential Total Cells Counted 100 Neutrophils % (Manual) 94 % (45-75) H Lymphocytes % (Manual) 3 % (20-45) L Monocytes % (Manual) 3 % (1-10) Eosinophils % (Manual) 0 % (0-3) Basophils % (Manual) 0 % (0-2) Band Neutrophils 0 % (0-8) Platelet Estimate Adequate Platelet Morphology Normal Polychromasia 1+ Hypochromasia 1+ Anisocytosis 1+ Activated Partial Thromboplast Time 122 SEC (23-33) H D-Dimer 6.64 mg/L FEU (0.00-0.49) H Sodium Level 137 MMOL/L (136-145) Potassium Level 4.0 MMOL/L (3.5-5.1) Chloride Level 104 MMOL/L (98-107) Carbon Dioxide Level 22 MMOL/L (21-32) Anion Gap 11 mmol/L (5-15) Blood Urea Nitrogen 51 mg/dL (7-18) H Creatinine 1.9 MG/DL (0.55-1.30) H Estimat Glomerular Filtration Rate 33.6 mL/min (>60) Glucose Level 174 MG/DL (74-106) H Lactic Acid Level 1.90 mmol/L (0.4-2.0) Uric Acid 10.1 MG/DL (2.6-7.2) H Calcium Level 7.9 MG/DL (8.5-10.1) L Phosphorus Level 4.3 MG/DL (2.5-4.9) Magnesium Level 2.3 MG/DL (1.8-2.4) Total Bilirubin 1.2 MG/DL (0.2-1.0) H Direct Bilirubin 0.5 MG/DL (0.0-0.3) H Aspartate Amino Transf (AST/SGOT) 152 U/L (15-37) H Alanine Aminotransferase (ALT/SGPT) 285 U/L (12-78) H Alkaline Phosphatase 118 U/L (46-116) H Troponin I 0.056 ng/mL (0.000-0.056) Total Protein 6.3 G/DL (6.4-8.2) L Albumin 2.9 G/DL (3.4-5.0) L Globulin 3.4 g/dL Albumin/Globulin Ratio 0.9 (1.0-2.7) L Thyroid Stimulating Hormone (TSH) 0.672 uiU/mL (0.358-3.740) Microbiology Date/Time Source Procedure Growth Status 05/13/20 18:20 Nasopharynx SARS-CoV-2 RdRp Gene Assay - Final Complete Foreign Alexander MD May 14, 2020 13:50
[2020-05-14] MEDS ORDERED: Digoxin 0.5mg/2ml Inj IVP SCH (14:00)
--- NOTE | 2020-05-14 14:14 | Cardiology Report ---
APPROVED REPORT EXAM: Two-dimensional and M-mode echocardiogram with Doppler and color Doppler. INDICATION Congestive Heart Failure M-Mode DIMENSIONS IVSd1.2 (0.7-1.1cm)Left Atrium (MM)5.0 (1.6-4.0cm) LVDd5.0 (3.5-5.6cm)Aortic Root3.3 (2.0-3.7cm) PWd1.2 (0.7-1.1cm)Aortic Cusp Exc.0.5 (1.5-2.0cm) IVSs1.5 cmEPSS0.5 (>1.0cm) LVDs3.9 (2.5-4.0cm) PWs1.2 cm <Conclusion> Technically difficult study due to poor acoustic windows. Study quality precludes accurate assessment of regional wall motion. Global left ventricular hypokinesis. Normal left ventricular chamber size. Left ventricular ejection fraction estimated to be 35-40 %. Mild left ventricular hypertrophy. Large pleural effusion. Trivial pericardial effusion. Moderately left atrial enlargement. Right cardiac chamber sizes are within normal limits. Aortic valve calcification with decreased cusp excursion c/w aortic stenosis. Thickened mitral valve leaflets with normal excursion. Heavily thickened anterior mitral valve leaflet. Heavy mitral annulus and aortic root calcification. Normal pulmonic valve structure. Normal tricuspid valve structure. IVC is normal in size without physiological collapse, suggestive of increased RA pressure. A color flow and spectral Doppler study was performed and revealed: Mild aortic regurgitation. Peak aortic valve gradient of 70 mmHg and a mean of 35 mmHg. Aortic valve area 0.5 cm2 calculated by continuity equation, c/w CRITICAL aortic stenosis. Severe mitral regurgitation. Peak mitral valve diastolic gradient of 22 mmHg and a mean gradient of 7 mmHg. Left ventricular diastolic function could not be determined due to A-Fib. Moderate tricuspid regurgitation. Tricuspid systolic velocities suggests peak right ventricular systolic pressure of 60 mmHg, consistent with severe pulmonary hypertension. Mild pulmonic regurgitation present. OSCAR Amezquita notified Dr. Alexander on 05/14/2020.
--- NOTE | 2020-05-14 15:00 | Consultation ---
DATE OF CONSULTATION: 05/14/2020 CARDIOLOGY CONSULTATION CONSULTING PHYSICIAN: Foreign Alexander MD REFERRING PHYSICIAN: Dave Leonard MD REASON FOR CONSULTATION: Atrial fibrillation with rapid ventricular response in a patient with history of coronary artery bypass graft. HISTORY OF PRESENT ILLNESS: Patient is an 89-year-old gentleman with history of hypertension, history of open heart surgery many years ago who was brought in by paramedics for altered mental status. Patient was confused in the morning per son. Patient refused to go to the hospital and then the son subsequently called the paramedics. In the emergency room, patient was in atrial fibrillation with rapid ventricular response and heart rate of 140s. Patient has white count of 12,000 with BUN of 51, creatinine of 1.7. Troponin was minimally elevated and the EKG showed atrial fibrillation with rapid ventricular response. Patient was then transferred to intensive care unit and per my order was started on Cardizem drip 10 mg/hour. At the time of my evaluation, patient is on BiPAP and is unable to provide any information. His lower extremity duplex showed bilateral DVT and started on heparin drip. REVIEW OF SYSTEMS: Cannot be obtained. PAST MEDICAL HISTORY: As mentioned above. FAMILY HISTORY: Noncontributory. SOCIAL HISTORY: He lives at home. Does not smoke or drink alcohol. PHYSICAL EXAMINATION: VITAL SIGNS: Show blood pressure of 140/88, pulse was 142, respirations 18. HEAD AND NECK: Show positive JVD. LUNGS: Decreased breath sounds. CARDIOVASCULAR: Shows irregularly irregular and tachycardic. S1 and S2 with no gallop. ABDOMEN: Soft. EXTREMITIES: 1+ pitting edema. LABORATORY AND DIAGNOSTIC STUDIES: His EKG showed atrial fibrillation with ventricular response, rate of 150s. His labs show white count of 9.2, hemoglobin 12.9, hematocrit 41.6, and platelet count of 159. Sodium 137, potassium 4.0, BUN of 51, creatinine 1.9. Lactic acid 4.1. His first troponin was elevated at 0.06. Second troponin was negative. ASSESSMENT AND PLAN: 1. Atrial fibrillation with rapid ventricular response with heart rate of 140s. I will start the patient on Cardizem drip to control the ventricular response better. His blood pressure initially was also elevated. It is of note that the patient underwent an echocardiogram and preliminary report showed ejection fraction of 35 to 40% as well as critical aortic stenosis with aortic valve area of 0.5 and severe SC. We will give the patient a combination of digoxin and metoprolol to get the heart rate better controlled and hopefully avoid Cardizem in view of patient's cardiomyopathy. Patient is also on heparin for anticoagulation. 2. Coronary artery disease with elevated troponin. Patient is on aspirin and Plavix and metoprolol 25 mg b.i.d. 3. Bilateral DVT, on heparin drip. 4. Respiratory failure, on BiPAP as well as broad-spectrum IV antibiotic. Thank you very much for allowing me to participate in the care of this patient. Please do not hesitate to contact me for any questions regarding my evaluation. Critical care time of 45 minutes. Foreign Alexander M.D. DR: VANESSA JOB#: [id number] CC:
--- NOTE | 2020-05-14 15:13 | Infectious Diseases Prog Note ---
Assessment/Plan Assessment/Plan Full consult to follow: A) 1) pneumonia, ? cap, ? aspiration, leukocytosis, AF with rvr 2) sob, bipap 3) pmh noted 4) allergies - nkda P) 1) zosyn, vancomycin, doxycycline 2) f/u on labs, cultures, chest x-ray 3) will f/u 4) thank you Subjective Allergies: Coded Allergies: No Known Allergies (Unverified , 05/13/20) Objective Last 24 Hour Vital Signs Date Time Temp Pulse Resp B/P (MAP) Pulse Ox O2 Delivery O2 Flow Rate FiO2 05/14/20 14:24 74 05/14/20 12:20 60 05/14/20 11:28 135 35 93 60 05/14/20 09:34 142 140/88 05/14/20 08:00 60 05/14/20 08:00 Bi-pap 60.0 05/14/20 07:24 152 33 91 60 05/14/20 06:00 116 15 101/84 (90) 05/14/20 05:00 120 18 105/81 (89) 05/14/20 04:00 Bi-pap 80.0 05/14/20 04:00 108 05/14/20 04:00 128 24 100/58 (72) 98 05/14/20 04:00 60 05/14/20 03:00 97.6 116 17 122/86 (98) 99 05/14/20 02:49 124 21 98 60 05/14/20 02:00 116 24 117/85 (96) 98 05/14/20 01:28 115 22 98 Bi-Pap 70 119 23 98 70 05/14/20 01:00 121 25 127/99 (108) 97 05/14/20 00:00 70 05/14/20 00:00 120 25 110/71 (84) 97 05/14/20 00:00 Bi-pap 80.0 05/13/20 23:00 98.0 110 21 106/73 (84) 98 05/13/20 22:50 113 21 98 70 05/13/20 22:00 80 05/13/20 22:00 115 22 106/65 (79) 96 05/13/20 22:00 119 29 106/65 (79) 99 05/13/20 21:16 Bi-Pap 80.0 05/13/20 21:13 80 11/24/20 21:08 98.8 104 24 120/77 (91) 99 05/13/20 21:00 Bi-pap 80.0 05/13/20 20:40 98.9 120 24 113/74 100 Bi-pap 80 05/13/20 19:27 111 30 100 80 05/13/20 19:15 98.1 96 20 134/87 100 Bi-pap 05/13/20 18:42 100 05/13/20 18:12 135 115/74 05/13/20 16:37 131 141/86 05/13/20 16:20 98.1 130 20 138/98 98 Nasal Cannula 05/13/20 16:20 130 20 Nasal Cannula 05/13/20 16:02 98.1 130 20 138/98 (111) 98 Nasal Cannula Height (Feet): 5 Height (Inches): 3.00 Weight (Pounds): 140 Microbiology Date/Time Source Procedure Growth Status 05/13/20 18:20 Nasopharynx SARS-CoV-2 RdRp Gene Assay - Final Complete Laboratory Tests Test 05/13/20 17:30 05/13/20 18:11 05/13/20 18:48 05/13/20 20:02 White Blood Count 12.0 K/UL (4.8-10.8) H Red Blood Count 4.39 M/UL (4.70-6.10) L Hemoglobin 13.3 G/DL (14.2-18.0) L Hematocrit 41.1 % (42.0-52.0) L Mean Corpuscular Volume 94 FL (80-99) Mean Corpuscular Hemoglobin 30.2 PG (27.0-31.0) Mean Corpuscular Hemoglobin Concent 32.3 G/DL (32.0-36.0) Red Cell Distribution Width 14.0 % (11.6-14.8) Platelet Count 188 K/UL (150-450) Mean Platelet Volume 7.7 FL (6.5-10.1) Neutrophils (%) (Auto) 80.6 % (45.0-75.0) H Lymphocytes (%) (Auto) 6.4 % (20.0-45.0) L Monocytes (%) (Auto) 12.7 % (1.0-10.0) H Eosinophils (%) (Auto) 0.1 % (0.0-3.0) Basophils (%) (Auto) 0.3 % (0.0-2.0) Prothrombin Time 14.0 SEC (9.30-11.50) H Prothromb Time International Ratio 1.3 (0.9-1.1) H Activated Partial Thromboplast Time 27 SEC (23-33) Sodium Level 133 MMOL/L (136-145) L Potassium Level 3.9 MMOL/L (3.5-5.1) Chloride Level 101 MMOL/L (98-107) Carbon Dioxide Level 20 MMOL/L (21-32) L Anion Gap 12 mmol/L (5-15) Blood Urea Nitrogen 51 mg/dL (7-18) H Creatinine 1.7 MG/DL (0.55-1.30) H Estimat Glomerular Filtration Rate 38.2 mL/min (>60) Glucose Level 117 MG/DL (74-106) H Lactic Acid Level 4.70 mmol/L (0.4-2.0) H 4.10 mmol/L (0.66-2.22) H Calcium Level 8.5 MG/DL (8.5-10.1) Magnesium Level 2.3 MG/DL (1.8-2.4) Ferritin 103 NG/ML (8-388) Total Bilirubin 1.4 MG/DL (0.2-1.0) H Direct Bilirubin 0.4 MG/DL (0.0-0.3) H Aspartate Amino Transf (AST/SGOT) 251 U/L (15-37) H Alanine Aminotransferase (ALT/SGPT) 363 U/L (12-78) H Alkaline Phosphatase 128 U/L (46-116) H Lactate Dehydrogenase 320 U/L (81-234) H Total Creatine Kinase 64 U/L (26-308) Troponin I 0.062 ng/mL (0.000-0.056) C-Reactive Protein, Quantitative 5.5 mg/dL (0.00-0.90) H Pro-B-Type Natriuretic Peptide 20373 pg/mL (0-125) H Total Protein 7.0 G/DL (6.4-8.2) Albumin 3.2 G/DL (3.4-5.0) L Globulin 3.8 g/dL Albumin/Globulin Ratio 0.8 (1.0-2.7) L Lipase 139 U/L (73-393) Arterial Blood pH 7.274 (7.350-7.450) Arterial Blood Partial Pressure CO2 37.7 mmHg (35.0-45.0) Arterial Blood Partial Pressure O2 87.3 mmHg (75.0-100.0) Arterial Blood HCO3 17.1 mmol/L (22.0-26.0) *L Arterial Blood Oxygen Saturation 94.6 % (95-100) L Arterial Blood Base Excess -9.0 (-2-2) L Amaury Test Positive Urine Color Pale yellow Urine Appearance Slightly cloudy Urine pH 5 (4.5-8.0) Urine Specific [place] 1.020 (1.005-1.035) Urine Protein 2+ (NEGATIVE) H Urine Glucose (UA) Negative (NEGATIVE) Urine Ketones 1+ (NEGATIVE) H Urine Blood Negative (NEGATIVE) Urine Nitrite Negative (NEGATIVE) Urine Bilirubin Negative (NEGATIVE) Urine Urobilinogen 1 MG/DL (0.0-1.0) H Urine Leukocyte Esterase 1+ (NEGATIVE) H Urine RBC 0 /HPF (0 - 0) Urine WBC 0-2 /HPF (0 - 0) Urine Squamous Epithelial Cells Occasional /LPF Urine Bacteria Occasional /HPF (NONE) Urine Hyaline Casts 5-10 /LPF (NONE) H Test 05/13/20 22:40 05/14/20 05:00 05/14/20 10:13 05/14/20 13:20 Arterial Blood pH 7.400 (7.350-7.450) 7.236 (7.350-7.450) Arterial Blood Partial Pressure CO2 30.5 mmHg (35.0-45.0) L 37.8 mmHg (35.0-45.0) Arterial Blood Partial Pressure O2 240.5 mmHg (75.0-100.0) H 76.7 mmHg (75.0-100.0) Arterial Blood HCO3 18.5 mmol/L (22.0-26.0) L 15.7 mmol/L (22.0-26.0) *L Arterial Blood Oxygen Saturation 99.0 % (95-100) 91.1 % (95-100) L Arterial Blood Base Excess -5.2 (-2-2) L -11.0 (-2-2) *L Amaury Test N/a White Blood Count 9.2 K/UL (4.8-10.8) Red Blood Count 4.31 M/UL (4.70-6.10) L Hemoglobin 12.8 G/DL (14.2-18.0) L Hematocrit 41.6 % (42.0-52.0) L Mean Corpuscular Volume 97 FL (80-99) Mean Corpuscular Hemoglobin 29.8 PG (27.0-31.0) Mean Corpuscular Hemoglobin Concent 30.9 G/DL (32.0-36.0) L Red Cell Distribution Width 14.2 % (11.6-14.8) Platelet Count 159 K/UL (150-450) Mean Platelet Volume 9.1 FL (6.5-10.1) Neutrophils (%) (Auto) % (45.0-75.0) Lymphocytes (%) (Auto) % (20.0-45.0) Monocytes (%) (Auto) % (1.0-10.0) Eosinophils (%) (Auto) % (0.0-3.0) Basophils (%) (Auto) % (0.0-2.0) Differential Total Cells Counted 100 Neutrophils % (Manual) 94 % (45-75) H Lymphocytes % (Manual) 3 % (20-45) L Monocytes % (Manual) 3 % (1-10) Eosinophils % (Manual) 0 % (0-3) Basophils % (Manual) 0 % (0-2) Band Neutrophils 0 % (0-8) Platelet Estimate Adequate Platelet Morphology Normal Polychromasia 1+ Hypochromasia 1+ Anisocytosis 1+ Activated Partial Thromboplast Time 122 SEC (23-33) H 68 SEC (23-33) H D-Dimer 6.64 mg/L FEU (0.00-0.49) H Sodium Level 137 MMOL/L (136-145) Potassium Level 4.0 MMOL/L (3.5-5.1) Chloride Level 104 MMOL/L (98-107) Carbon Dioxide Level 22 MMOL/L (21-32) Anion Gap 11 mmol/L (5-15) Blood Urea Nitrogen 51 mg/dL (7-18) H Creatinine 1.9 MG/DL (0.55-1.30) H Estimat Glomerular Filtration Rate 33.6 mL/min (>60) Glucose Level 174 MG/DL (74-106) H Lactic Acid Level 1.90 mmol/L (0.4-2.0) Uric Acid 10.1 MG/DL (2.6-7.2) H Calcium Level 7.9 MG/DL (8.5-10.1) L Phosphorus Level 4.3 MG/DL (2.5-4.9) Magnesium Level 2.3 MG/DL (1.8-2.4) Total Bilirubin 1.2 MG/DL (0.2-1.0) H Direct Bilirubin 0.5 MG/DL (0.0-0.3) H Aspartate Amino Transf (AST/SGOT) 152 U/L (15-37) H Alanine Aminotransferase (ALT/SGPT) 285 U/L (12-78) H Alkaline Phosphatase 118 U/L (46-116) H Troponin I 0.056 ng/mL (0.000-0.056) Total Protein 6.3 G/DL (6.4-8.2) L Albumin 2.9 G/DL (3.4-5.0) L Globulin 3.4 g/dL Albumin/Globulin Ratio 0.9 (1.0-2.7) L Thyroid Stimulating Hormone (TSH) 0.672 uiU/mL (0.358-3.740) Test 05/14/20 14:40 Arterial Blood pH 7.357 (7.350-7.450) Arterial Blood Partial Pressure CO2 27.6 mmHg (35.0-45.0) L Arterial Blood Partial Pressure O2 134.2 mmHg (75.0-100.0) H Arterial Blood HCO3 15.1 mmol/L (22.0-26.0) *L Arterial Blood Oxygen Saturation 98.2 % (95-100) Arterial Blood Base Excess -8.8 (-2-2) L Amaury Test Positive Current Medications Medications (Trade) Dose Ordered Sig/Adalberto Route PRN Reason Start Time Stop Time Status Last Admin Dose Admin Aspirin (Ecotrin) 81 mg DAILY ORAL 05/14/20 09:00 06/28/20 08:59 05/14/20 09:34 Clopidogrel Bisulfate (Plavix) 75 mg DAILY ORAL 05/14/20 09:00 06/13/20 08:59 05/14/20 09:32 Digoxin (Lanoxin) 0.125 mg DAILY ORAL 05/15/20 09:00 08/13/20 08:59 Diltiazem HCl 125 ml @ 10 mls/hr Q24H IVPB 05/14/20 14:00 05/15/20 09:14 Finasteride (Proscar) 5 mg DAILY ORAL 05/14/20 09:00 08/12/20 08:59 05/14/20 09:34 Heparin Sodium/ Dextrose 500 ml @ 19.051 mls/ hr ADJUST PER PROTOCOL IV 05/14/20 07:00 06/13/20 06:59 05/14/20 07:17 Ipratropium [place] (Atrovent) 500 mcg Q6HRT HHN 05/14/20 01:00 05/19/20 00:59 05/14/20 01:27 Levothyroxine Sodium (Synthroid) 125 mcg DAILY ORAL 05/14/20 09:00 06/13/20 08:59 05/14/20 09:34 Metoprolol Tartrate (Lopressor) 25 mg EVERY 12 HOURS ORAL 05/14/20 09:00 08/12/20 08:59 05/14/20 09:34 Mirtazapine (Remeron) 45 mg BEDTIME ORAL 05/14/20 21:00 08/12/20 20:59 Ondansetron HCl (Zofran) 4 mg Q6H PRN IVP Nausea & Vomiting 05/13/20 22:00 06/12/20 21:59 Pantoprazole (Protonix) 40 mg DAILY IVP 05/15/20 09:00 06/14/20 08:59 Piperacillin Sod/ Tazobactam Sod 3.375 gm/Sodium Chloride 110 ml @ 27.5 mls/hr Q8H IVPB 05/14/20 10:00 05/21/20 09:59 05/14/20 09:38 Sodium Chloride 1,000 ml @ 75 mls/hr [id number] IV 05/13/20 22:00 06/12/20 21:59 05/13/20 22:28 Vancomycin HCl ([facility] pharmacy to dose) 1 ea DAILY PRN MISC Per rx protocol 05/13/20 22:00 06/12/20 21:59 Miguelina Coley MD May 14, 2020 15:13
--- NOTE | 2020-05-14 16:11 | Diagnostic Imaging Report ---
Indication: Shortness of breath Technique: One view of the chest Comparison: ] 10/08/2019 Findings: Bilateral pleural effusions, bilateral interstitial and airspace edema versus infiltrates persist, unchanged. The heart size is normal. Impression: Unchanged, over one day, findings as above.
--- NOTE | 2020-05-14 16:16 | Diagnostic Imaging Report ---
Indication: Reason For Exam: DVT Technique: Grayscale and duplex images of the bilateral lower extremity veins Comparison: None Findings: On the right, grayscale and duplex images demonstrate nonocclusive but acute appearing thrombus within the right common femoral vein, femoral vein, and peroneal veins. Intervening segments are patent without evidence of intraluminal thrombus and demonstrate normal flow and compressibility. On the left, grayscale and duplex images demonstrate nonocclusive acute appearing thrombus within the downstream femoral vein. The remaining venous segments are patent, demonstrating normal flow and compressibility. Impression: Positive for bilateral deep venous thrombosis, as described Patient's nurse notified at the time of interpretation
--- NOTE | 2020-05-14 16:20 | Diagnostic Imaging Report ---
Indication: Acute renal failure Technique: Grayscale and duplex images of the kidneys, retroperitoneum, and bladder were obtained. Comparison: none Findings: Right kidney measures 9.1 cm in length. Left kidney measures 9.6 cm in length. Both kidneys demonstrate normal echogenicity. No hydronephrosis. No focal abnormality. Normal inferior vena cava. Bladder is empty, contains a Alvarado catheter. There is a large right pleural effusion incidentally noted. There is a large left pleural effusion incidentally noted as well. Impression: Normal kidneys. No hydronephrosis Empty bladder with a Alvarado catheter Large bilateral pleural effusions.
--- NOTE | 2020-05-14 16:22 | Consultation ---
Consult Note Consult Note I am asked to evaluate the patient at the request of for renal failure and fluid and electrolyte management Patient seen in ICU, discussed with RN. Chief Complaint: Altered Level of Consciousness Patient has been ill for 1 week. His son came from out of town to help take care of him. Usually he is able to ambulate to the bathroom at night the last night he was confused and could not. His son states that the patient could not understand him. He has been refusing to go into the hospital. Today he was still confused so the son called 911. The son is concerned that his father was suffering from a stroke acutely. The patient is unable to answer questions at this time. The patient is been complaining of shortness of breath. Apparently he has been denying any pain. This is according to his son. According to younger son. h/o aortic stenosis and mitral valve disease. EF 25- 30%. Not taking meds (except for lasix) for 2 weeks. Status post coronary artery bypass graft surgery. Hypercholesterolemia Patient also has a history of thyroid disease on Synthroid. Allergies: No Known Allergies (Unverified , 05/13/20) COVID-19 Screening Contact w/high risk pt: No Experienced COVID-19 symptoms?: No COVID-19 Testing performed SEISMIC PLOTTER: No Past Medical History: CHF, other - Aortic stenosis Past Surgical History: CABG Past Medical History: No History, Except For Hx Cardiac Problems: Yes - cardiac surgery 20 years ago, CHF Hx Hypertension: Yes Vital Signs Date Time Temp Pulse Resp B/P (MAP) Pulse Ox O2 Delivery O2 Flow Rate FiO2 05/13/20 16:02 98.1 130 20 138/98 (111) 98 Nasal Cannula PHYSICAL EXAMINATION: VITAL SIGNS: Show blood pressure of 140/88, pulse was 142, respirations 18. HEAD AND NECK: Show positive JVD. LUNGS: Decreased breath sounds. CARDIOVASCULAR: Shows irregularly irregular and tachycardic. S1 and S2 with no gallop. ABDOMEN: Soft. EXTREMITIES: 1+ pitting edema. LABORATORY AND DIAGNOSTIC STUDIES: His EKG showed atrial fibrillation with ventricular response, rate of 150s. His labs show white count of 9.2, hemoglobin 12.9, hematocrit 41.6, and platelet count of 159. Sodium 137, potassium 4.0, BUN of 51, creatinine 1.9. Lactic acid 4.1. His first troponin was elevated at 0.06. Second troponin was negative. . Assessment/Plan Acute renal failure, possibly chronic kidney disease underlying BPH Hypertension Atrial fibrillation with rapid ventricular rate Coronary artery disease with elevated troponin Bilateral DVT on heparin drip Respiratory failure on BiPAP, bilateral pleural effusion Pneumonia possible aspiration Optimize pulmonary and cardiac status Monitor renal parameters Avoid nephrotoxic's Keep the electrolytes in check Urine studies Per consultants Per orders Eugene Miller MD May 14, 2020 16:22
--- NOTE | 2020-05-14 16:30 | Consultation ---
DATE OF CONSULTATION: 05/14/2020 CHIEF COMPLAINT: The patient has dysphagia and anemia. HISTORY OF PRESENT ILLNESS: Most of the history per chart. The patient seen in ICU on BiPAP. This is an elderly gentleman who was visiting [place] [id number] was called because he was altered. Since admission, he was found to have DVT. He is on heparin drip. He is on BiPAP. He is on . PAST MEDICAL HISTORY: Significant for: 1. History of mitral valve disease. 2. History of CHF with EF of 25% to 30%. 3. History of coronary artery disease with coronary artery bypass graft. 4. Hypercholesteremia. 5. Hypothyroidism. PAST SURGICAL HISTORY: CABG. ALLERGIES: No known allergies. MEDICATIONS: Please see medication reconciliation list. FAMILY HISTORY: Noncontributory. SOCIAL HISTORY: There is no recent history of tobacco, alcohol, or IV drug abuse. REVIEW OF SYSTEMS: Limited. PHYSICAL EXAMINATION: VITAL SIGNS: Temperature 97.6, heart rate is irregularly irregular at a rate of 142, respirations 33 on BiPAP, blood pressure 140/80. HEENT: Normocephalic and atraumatic. Mild pale conjunctivae. NECK: Supple. No evidence of obvious lymphadenopathy. CARDIOVASCULAR: Irregularly irregular. Plus S1, S2. LUNGS: Decreased breath sounds bilaterally based on the supine exam. ABDOMEN: Soft, nontender. No rebound. No guarding. No peritoneal sign. EXTREMITIES: Bilateral lower extremity edema. LABORATORY DATA: White count is 9.2, hemoglobin 12, hematocrit 41, platelet count is 159. Chem-7, sodium is 137, potassium is 4, BUN is 51, creatinine is 1.9, glucose is 174. Bilirubin total is 1.2, direct 0.5, AST of 152, ALT of 285, alkaline phosphatase of 118. ASSESSMENT: This is an 89-year-old male with numerous medical problems, seen in ICU. The patient in acute distress both pulmonary and cardiac, had evidence of abnormal liver function tests most probably early shock liver or congestive liver disease. PLAN: At this time, the patient to be kept NPO as long as he is on the BiPAP. We will consider placement of NG tube in a day or two if he is more stable. Follow with Cardiology regarding history of CABG and now with possible [place]. Repeat labs for tomorrow. The patient at this time not stable for any GI procedures. Mateo Bowman M.D. DR: Ta JOB#: [id number] CC:
--- NOTE | 2020-05-14 18:51 | Consultation ---
History of Present Illness General Date patient seen: May 14, 2020 Reason for Hospitalization: Altered Level of Consciousness Present Illness HPI 89 year old male currently admitted [place] [facility] [place] to have elevated lft's and abnormal with t bili, ast/alt/alk phos. surgery called to evaluate and assist with care. patient seen, chart reviewed, patient examined. on bipap. ill appearing. labs reviewed. imaging [email or web address] Allergies: Coded Allergies: No Known Allergies (Unverified , 05/13/20) COVID-19 Screening Contact w/high risk pt: No Experienced COVID-19 symptoms?: No Medication History Scheduled Cholecalciferol (Vitamin D3) (Vitamin D3*), 25 MCG PO DAILY, (Reported) Clopidogrel* (Clopidogrel*), 75 MG ORAL DAILY, (Reported) Finasteride* (Proscar*), 5 MG ORAL DAILY, (Reported) Furosemide* (Lasix*), 40 MG ORAL DAILY, (Reported) Levothyroxine Sodium* (Synthroid*), 100 MCG ORAL DAILY, (Reported) Metoprolol Tartrate* (Metoprolol Tartrate*), 25 MG ORAL DAILY, (Reported) Mirtazapine* (Remeron*), 45 MG ORAL BEDTIME, (Reported) Rosuvastatin Calcium* (Crestor*), 5 MG ORAL DAILY, (Reported) Discontinued Medications Levothyroxine Sodium* (Levothyroxine Sodium*), 100 MCG ORAL DAILY, (Reported) Discontinued Reason: Prescription changed Mirtazapine* (Mirtazapine*), 45 MG ORAL BEDTIME, (Reported) Discontinued Reason: Prescription changed Patient History Limited by: medical condition History Provided By: Medical Record, PMD Healthcare decision maker Resuscitation status Advanced Directive on File Past Medical/Surgical History Past Medical/Surgical History: (1) New onset atrial fibrillation (2) COVID-19 ruled out by laboratory testing (3) Pneumonia (4) Acute on chronic renal failure (5) Aortic stenosis (6) Hypoxia (7) Altered level of consciousness (8) Rapid atrial fibrillation Review of Systems Review of Symptoms General ROS: no weight loss or fever Psychological ROS: no depression or mood changes, no memory loss Ophthalmic ROS: no visual changes or eye irritation ENT ROS: no nasal congestion, hearing loss, dizziness Allergy and Immunology ROS: no allergic symptoms or urticaria Hematological and Lymphatic ROS: no swollen glands, unusual bleeding or bruising Endocrine ROS: no polyuria, polydipsia, weight changes, temperature intolerance Respiratory ROS: no cough, shortness of breath, or wheezing Cardiovascular ROS: no chest pain or dyspnea on exertion Gastrointestinal ROS: denies abdominal pain, bright red blood in stool. Musculoskeletal ROS: no myalgias or arthralgias Neurological ROS: no TIA or stroke symptoms Dermatological ROS: no new or changing skin lesions, rashes or pruritis limited Physical Exam Physical Exam General appearance: alert, cooperative, no distress, appears stated age Head: Normocephalic, without obvious abnormality, atraumatic Eyes: conjunctivae/corneas clear. PERRL, EOM's intact. Fundi benign Throat: Lips, mucosa, and tongue normal. Teeth and gums normal Neck: supple, symmetrical, trachea midline, no adenopathy, thyroid: not enlarged, symmetric, no tenderness/mass/nodules, no carotid bruit and no JVD Lungs: clear to auscultation bilaterally Heart: regular rate and rhythm, S1, S2 normal, no murmur, click, rub or gallop Abdomen: soft, non-tender. Bowel sounds normal. No masses, no organomegaly Extremities: extremities normal, atraumatic, no cyanosis or edema Pulses: 2+ and symmetric Skin: Skin color, texture, turgor normal. No rashes or lesions Neurologic: Grossly normal Last 24 Hour Vital Signs Date Time Temp Pulse Resp B/P (MAP) Pulse Ox O2 Delivery O2 Flow Rate FiO2 05/14/20 18:00 85 25 93/59 (70) 100 05/14/20 17:15 91 22 102/76 (85) 99 05/14/20 17:00 90 28 97/35 (55) 97 05/14/20 16:06 60 05/14/20 16:00 85 05/14/20 16:00 97.5 82 20 103/78 (86) 98 05/14/20 16:00 Bi-pap 60.0 05/14/20 15:21 85 27 99 60 05/14/20 15:00 84 20 91/63 (72) 99 05/14/20 14:24 74 05/14/20 14:00 80 28 98/81 (87) 99 05/14/20 13:45 74 21 92/65 (74) 94 05/14/20 13:30 71 25 77/56 (63) 99 05/14/20 13:15 69 19 82/52 (62) 98 05/14/20 13:00 77 26 110/81 (91) 96 05/14/20 12:30 112 30 115/72 (86) 96 05/14/20 12:20 60 05/14/20 12:00 Bi-pap 60.0 05/14/20 12:00 98.2 124 30 116/83 (94) 96 05/14/20 11:52 112 05/14/20 11:30 118 31 99/86 (90) 94 05/14/20 11:28 135 35 93 60 05/14/20 11:00 122 31 98/65 (76) 94 05/14/20 10:30 129 25 137/85 (102) 95 05/14/20 10:15 132 31 132/86 (101) 93 05/14/20 10:00 130 35 135/88 (104) 95 05/14/20 10:00 129 14 138/80 (99) 92 05/14/20 09:45 135 35 140/82 (101) 96 05/14/20 09:34 142 140/88 05/14/20 09:30 139 22 169/87 (114) 95 05/14/20 09:00 139 22 140/88 (105) 96 05/14/20 08:00 60 05/14/20 08:00 Bi-pap 60.0 05/14/20 08:00 97.9 146 28 156/102 (120) 95 05/14/20 07:45 125 05/14/20 07:24 152 33 91 60 05/14/20 07:00 116 14 130/89 (103) 99 05/14/20 06:00 116 15 101/84 (90) 05/14/20 05:00 120 18 105/81 (89) 05/14/20 04:00 Bi-pap 80.0 05/14/20 04:00 108 05/14/20 04:00 128 24 100/58 (72) 98 05/14/20 04:00 60 05/14/20 03:00 97.6 116 17 122/86 (98) 99 05/14/20 02:49 124 21 98 60 05/14/20 02:00 116 24 117/85 (96) 98 05/14/20 01:28 115 22 98 Bi-Pap 70 119 23 98 70 05/14/20 01:00 121 25 127/99 (108) 97 05/14/20 00:00 70 05/14/20 00:00 120 25 110/71 (84) 97 05/14/20 00:00 Bi-pap 80.0 05/13/20 23:00 98.0 110 21 106/73 (84) 98 05/13/20 22:50 113 21 98 70 05/13/20 22:00 80 05/13/20 22:00 115 22 106/65 (79) 96 05/13/20 22:00 119 29 106/65 (79) 99 05/13/20 21:16 Bi-Pap 80.0 05/13/20 21:13 80 05/13/20 21:08 98.8 104 24 120/77 (91) 99 05/13/20 21:00 Bi-pap 80.0 05/13/20 20:40 98.9 120 24 113/74 100 Bi-pap 80 05/13/20 19:27 111 30 100 80 05/13/20 19:15 98.1 96 20 134/87 100 Bi-pap Intake and Output 05/13/20 05/14/20 19:00 07:00 Intake Total 830 ml 1096.596 ml Output Total 0 ml 890 ml Balance 830 ml 206.596 ml Intake Oral 0 ml IV Total 830 ml 1096.596 ml Output Urine Total 0 ml 890 ml Laboratory Tests Test 05/13/20 20:02 05/13/20 22:40 05/14/20 05:00 05/14/20 10:13 Lactic Acid Level 4.10 mmol/L (0.66-2.22) H 1.90 mmol/L (0.4-2.0) Arterial Blood pH 7.400 (7.350-7.450) 7.236 (7.350-7.450) Arterial Blood Partial Pressure CO2 30.5 mmHg (35.0-45.0) L 37.8 mmHg (35.0-45.0) Arterial Blood Partial Pressure O2 240.5 mmHg (75.0-100.0) H 76.7 mmHg (75.0-100.0) Arterial Blood HCO3 18.5 mmol/L (22.0-26.0) L 15.7 mmol/L (22.0-26.0) *L Arterial Blood Oxygen Saturation 99.0 % (95-100) 91.1 % (95-100) L Arterial Blood Base Excess -5.2 (-2-2) L -11.0 (-2-2) *L Amaury Test N/a White Blood Count 9.2 K/UL (4.8-10.8) Red Blood Count 4.31 M/UL (4.70-6.10) L Hemoglobin 12.8 G/DL (14.2-18.0) L Hematocrit 41.6 % (42.0-52.0) L Mean Corpuscular Volume 97 FL (80-99) Mean Corpuscular Hemoglobin 29.8 PG (27.0-31.0) Mean Corpuscular Hemoglobin Concent 30.9 G/DL (32.0-36.0) L Red Cell Distribution Width 14.2 % (11.6-14.8) Platelet Count 159 K/UL (150-450) Mean Platelet Volume 9.1 FL (6.5-10.1) Neutrophils (%) (Auto) % (45.0-75.0) Lymphocytes (%) (Auto) % (20.0-45.0) Monocytes (%) (Auto) % (1.0-10.0) Eosinophils (%) (Auto) % (0.0-3.0) Basophils (%) (Auto) % (0.0-2.0) Differential Total Cells Counted 100 Neutrophils % (Manual) 94 % (45-75) H Lymphocytes % (Manual) 3 % (20-45) L Monocytes % (Manual) 3 % (1-10) Eosinophils % (Manual) 0 % (0-3) Basophils % (Manual) 0 % (0-2) Band Neutrophils 0 % (0-8) Platelet Estimate Adequate Platelet Morphology Normal Polychromasia 1+ Hypochromasia 1+ Anisocytosis 1+ Activated Partial Thromboplast Time 122 SEC (23-33) H D-Dimer 6.64 mg/L FEU (0.00-0.49) H Sodium Level 137 MMOL/L (136-145) Potassium Level 4.0 MMOL/L (3.5-5.1) Chloride Level 104 MMOL/L (98-107) Carbon Dioxide Level 22 MMOL/L (21-32) Anion Gap 11 mmol/L (5-15) Blood Urea Nitrogen 51 mg/dL (7-18) H Creatinine 1.9 MG/DL (0.55-1.30) H Estimat Glomerular Filtration Rate 33.6 mL/min (>60) Glucose Level 174 MG/DL (74-106) H Uric Acid 10.1 MG/DL (2.6-7.2) H Calcium Level 7.9 MG/DL (8.5-10.1) L Phosphorus Level 4.3 MG/DL (2.5-4.9) Magnesium Level 2.3 MG/DL (1.8-2.4) Total Bilirubin 1.2 MG/DL (0.2-1.0) H Direct Bilirubin 0.5 MG/DL (0.0-0.3) H Aspartate Amino Transf (AST/SGOT) 152 U/L (15-37) H Alanine Aminotransferase (ALT/SGPT) 285 U/L (12-78) H Alkaline Phosphatase 118 U/L (46-116) H Troponin I 0.056 ng/mL (0.000-0.056) Total Protein 6.3 G/DL (6.4-8.2) L Albumin 2.9 G/DL (3.4-5.0) L Globulin 3.4 g/dL Albumin/Globulin Ratio 0.9 (1.0-2.7) L Thyroid Stimulating Hormone (TSH) 0.672 uiU/mL (0.358-3.740) Test 05/14/20 13:20 05/14/20 14:40 05/14/20 16:30 05/14/20 18:30 Activated Partial Thromboplast Time 68 SEC (23-33) H Arterial Blood pH 7.357 (7.350-7.450) Arterial Blood Partial Pressure CO2 27.6 mmHg (35.0-45.0) L Arterial Blood Partial Pressure O2 134.2 mmHg (75.0-100.0) H Arterial Blood HCO3 15.1 mmol/L (22.0-26.0) *L Arterial Blood Oxygen Saturation 98.2 % (95-100) Arterial Blood Base Excess -8.8 (-2-2) L Amaury Test Positive Urine Random Sodium < 20 mmol/L (20-110) L Random Vancomycin Level Pending Height (Feet): 5 Height (Inches): 3.00 Weight (Pounds): 140 Medications Current Medications Medications (Trade) Dose Ordered Sig/Adalberto Route PRN Reason Start Time Stop Time Status Last Admin Dose Admin Aspirin (Ecotrin) 81 mg DAILY ORAL 05/14/20 09:00 06/28/20 08:59 05/14/20 09:34 Clopidogrel Bisulfate (Plavix) 75 mg DAILY ORAL 05/14/20 09:00 06/13/20 08:59 05/14/20 09:32 Digoxin (Lanoxin) 0.125 mg DAILY ORAL 05/15/20 09:00 08/13/20 08:59 Diltiazem HCl 125 ml @ 10 mls/hr Q24H IVPB 05/14/20 14:00 05/15/20 09:14 Doxycycline Hyclate 100 mg/ Dextrose 100 ml @ 100 mls/hr Q12HR IV 05/14/20 21:00 05/21/20 20:59 Finasteride (Proscar) 5 mg DAILY ORAL 05/14/20 09:00 08/12/20 08:59 05/14/20 09:34 Heparin Sodium/ Dextrose 500 ml @ 19.051 mls/ hr ADJUST PER PROTOCOL IV 05/14/20 07:00 06/13/20 06:59 05/14/20 07:17 Ipratropium [place] (Atrovent) 500 mcg Q6HRT HHN 05/14/20 01:00 05/19/20 00:59 05/14/20 01:27 Levothyroxine Sodium (Synthroid) 125 mcg DAILY ORAL 05/14/20 09:00 06/13/20 08:59 05/14/20 09:34 Metoprolol Tartrate (Lopressor) 25 mg EVERY 12 HOURS ORAL 05/14/20 09:00 08/12/20 08:59 05/14/20 09:34 Mirtazapine (Remeron) 45 mg BEDTIME ORAL 05/14/20 21:00 08/12/20 20:59 Ondansetron HCl (Zofran) 4 mg Q6H PRN IVP Nausea & Vomiting 05/13/20 22:00 06/12/20 21:59 Pantoprazole (Protonix) 40 mg DAILY IVP 05/15/20 09:00 06/14/20 08:59 Piperacillin Sod/ Tazobactam Sod 3.375 gm/Sodium Chloride 110 ml @ 27.5 mls/hr Q8H IVPB 05/14/20 10:00 05/21/20 09:59 05/14/20 18:09 Sodium Chloride 1,000 ml @ 75 mls/hr [id number] IV 05/13/20 22:00 06/12/20 21:59 05/14/20 13:00 Vancomycin HCl (Vanc pharmacy to dose) 1 ea DAILY PRN MISC Per rx protocol 05/13/20 22:00 06/12/20 21:59 Assessment/Plan Problem List: (1) Abnormal LFTs Assessment & Plan: PATIENT AWAKE. NON-VERBAL. APPEARS AGITATED. ARRIVED TO FIND LEFT ARM OUT OF RESTRAINT AND ALL IV'S REMOVED. PRIMARY NURSE NOTIFIED. NO BREAKDOWN OF MARYLOU PROMINENCES NOTED. RIGHT FOREARM -SKIN TEAR MEASURES 5.0X0.6X0.1CM. RECOMMEND- APPLY XEROFORM GAUZE AND COVER WITH OPTIFOAM DRESSING. REPLACE EVERY 3 DAYS. ALSO RECOMMEND: REPOSITION AT LEAST EVERY 2 HOURS OR TOLERATED ELEVATE HEELS WITH PILLOWS CONTINUE WOUND PREVENTION PROTOCOLS Liver: The liver is increased in echogenicity, consistent with hepatic steatosis. No intrahepatic bile duct dilation. Gallbladder: Status post cholecystectomy. Common bile duct: The common bile duct is not dilated and measures 3 mm. Pancreas: The pancreas is not visualized well enough for reliable assessment. Kidneys: The right kidney measures 9.3 cm. No hydronephrosis or nephrolithiasis. The left kidney measures 9.4 cm. No hydronephrosis or nephrolithiasis. Spleen: The spleen measures 7.5 cm. Aorta and IVC: The abdominal aorta and inferior vena cava are within normal limits. The aorta measures 1.0 cm. Pleural space: Small bilateral pleural effusions, incidentally noted. IMPRESSION: Hepatic steatosis. Cholecystectomy. Nondilated common bile duct measuring 3 mm. No hydronephrosis or nephrolithiasis. Small bilateral pleural effusions. liver dysfucntion no obstruction no acute surgery iv fluids trend labs ICD Codes: R94.5 - Abnormal results of liver function studies SNOMED: 770367446 (2) New onset atrial fibrillation ICD Codes: I48.91 - Unspecified atrial fibrillation SNOMED: 29771248, 118114534 (3) COVID-19 ruled out by laboratory testing ICD Codes: Z03.818 - Encounter for observation for suspected exposure to other biological agents ruled out SNOMED: 162161665, 009279600 (4) Pneumonia ICD Codes: J18.9 - Pneumonia, unspecified organism SNOMED: 146432755, 323085225 Qualifiers: Qualified Codes: J18.9 - Pneumonia, unspecified organism (5) Acute on chronic renal failure ICD Codes: N17.9 - Acute kidney failure, unspecified; N18.9 - Chronic kidney disease, unspecified SNOMED: 053356172 (6) Aortic stenosis ICD Codes: I35.0 - Nonrheumatic aortic (valve) stenosis SNOMED: 17606134 Qualifiers: Qualified Codes: I35.0 - Nonrheumatic aortic (valve) stenosis (7) Hypoxia ICD Codes: R09.02 - Hypoxemia SNOMED: 802422356 (8) Altered level of consciousness ICD Codes: R40.4 - Transient alteration of awareness SNOMED: 7037428 (9) Rapid atrial fibrillation ICD Codes: I48.91 - Unspecified atrial fibrillation SNOMED: 393007010 Shukri Ellison May 14, 2020 18:51
[2020-05-14] MEDS ORDERED: Vancomycin 1gm/D5W 275ml IVPB ONE ×2 (21:00)
[2020-05-14] MEDS ORDERED: LORazepam Inj 2mg/ml 1ml IV PRN (21:07)
[2020-05-15] VITALS (42 sets, daily range): BP systolic 38–140; BP diastolic 18–101
--- NOTE | 2020-05-15 00:02 | Diagnostic Imaging Report ---
EXAM: XR Chest, 1 View CLINICAL HISTORY: S/P INTUB TECHNIQUE: Frontal view of the chest. COMPARISON: 05/14/2020 at 1030 hrs. FINDINGS: Lungs: Hazy bilateral lung attenuation could represent pulmonary edema or consolidation. Retrocardiac atelectasis without or with consolidation. Pleural space: Right greater than left small pleural effusions with passive atelectasis. No pneumothorax. Heart: Unremarkable. No cardiomegaly. Mediastinum: Unremarkable. Bones/joints: Sternotomy with mediastinal operative findings. Tubes, lines and devices: Right mainstem intubation. Retract ETT at least 4-5 centimeters and reimage. IMPRESSION: 1. Right mainstem intubation. 2. Retract ETT at least 4-5 centimeters and reimage. 3. Right greater than left small pleural effusions with passive atelectasis. 4. Hazy bilateral lung attenuation could represent pulmonary edema or consolidation. 5. Retrocardiac atelectasis without or with consolidation. <MYCVCSECTION> Communications: 05/15/20 00:05 Call Nurse OSCAR Lucero on 05/15 00:05 (-08:00)
[2020-05-15] MEDS: Levalbuterol Inh UD 1.25mg/0.5ml HHN SCH ×3 (01:24→12:25)
--- NOTE | 2020-05-15 02:30 | Emergency Room Report ---
History of Present Illness General Chief Complaint: Altered Level of Consciousness Source: Medical Record, PMD Present Illness HPI This is an 89-year-old [place] male who was admitted for rapid atrial fibrillation. I responded to the CODE BLUE during the ICU. Per nursing staff, he became bradycardic and had no pulse. CPR was initiated and patient received a total of 2 mg epinephrine. I intubated the patient and shortly afterward there was return of spontaneous pulse. Chest x-ray was done which showed right mainstem intubation. It was pulled back and a new x-ray was done. Patient became hypotensive later on and a central line was placed. Please see retirement note for full list of medication and time given on the code sheet. Allergies: Coded Allergies: No Known Allergies (Unverified , 05/13/20) COVID-19 Screening Contact w/high risk pt: No Experienced COVID-19 symptoms?: No COVID-19 Testing performed PSYCHOLOGICAL OPERATIONS OFFICER: No COVID-19 Screening: Negative COVID-19 Nursing Documentation-PMH Past Medical History: No History, Except For Hx Cardiac Problems: Yes Hx Hypertension: Yes Hx Cancer: No Hx Gastrointestinal Problems: No Hx Neurological Problems: No Physical Exam Vital Signs Date Time Temp Pulse Resp B/P (MAP) Pulse Ox O2 Delivery O2 Flow Rate FiO2 05/13/20 16:02 98.1 130 20 138/98 (111) 98 Nasal Cannula 05/13/20 18:42 100 05/13/20 21:00 80.0 Procedures Central Line Central Line : Consent: Emergent Central Line Lumen: triple Maximal Sterile Barrier Tech: yes cap, yes mask, yes sterile gown, yes sterile gloves, yes large sterile sheet, yes hand hygiene, yes chlorhexidine prep Central Line Postion: femoral (R) Anesthesia: local cc's of anesthesia: 10 US Guided Line?: No Complications: none Central Line Post Position: sutured, good blood return Attempts: One Patient Tolerated: Well Complications: None CPR/Code Blue CPR/Code Blue Narrative Please see code sheet for full list of medication time given. Patient received a total of 2 mg of epinephrine. Intubation Intubation : Consent: Emergent Intubation Method: orotracheal Tube Size (cm): 7.5 Breath Sounds after Intubation: equal Intubation Complications: no complications Post Intubation Xray: Yes Progress/Xray Impression: Mainstem intubation, right Attempts: One Patient Tolerated: Well Complications: None Medical Decision Making Diagnostic Impression: Primary Impression: Hypoxia Additional Impressions: COVID-19 ruled out by laboratory testing Altered level of consciousness Aortic stenosis Qualified Codes: I35.0 - Nonrheumatic aortic (valve) stenosis New onset atrial fibrillation Rapid atrial fibrillation Pneumonia Qualified Codes: J18.9 - Pneumonia, unspecified organism Cardiac arrest Septic shock ER Course Patient presents with cardiac arrest and subsequently intubated and central line placed. Chest X-Ray Diagnostic Results Chest X-Ray Diagnostic Results #1: Chest X-Ray Ordered: Yes # of Views/Limited/Complete: 1 View Indication: Shortness of Breath EP Interpretation: Yes Interpretation: no pneumothorax, other - Right mainstem intubation. Bilateral lower infiltrates. Impression: Other - Status post intubation, right mainstem Electronically Signed by: Giuseppe Greenfield MD Chest X-Ray Diagnostic Results #2: Chest X-Ray Ordered: Yes # of Views/Limited/Complete: 1 View Indication: Shortness of Breath EP Interpretation: Yes Interpretation: no effusion, no pneumothorax, other - Endotracheal tube at sternal notch. Bilateral infiltrate. Cardiomegaly. Impression: Other - s/p intubation, b/l infiltrates Electronically Signed by: Giuseppe Greenfield MD Last Vital Signs Date Time Temp Pulse Resp B/P (MAP) Pulse Ox O2 Delivery O2 Flow Rate FiO2 05/15/20 01:27 115 23 100 Mechanical Ventilator 100 112 20 100 05/15/20 00:00 60.0 05/14/20 23:05 116/59 05/14/20 16:00 97.5 Status: improved Disposition: ADMITTED INPATIENT Condition: Critical Referrals: NOT CHOSEN IPA/,REFERRING (PCP) Giuseppe Greenfield MD May 15, 2020 02:30
--- NOTE | 2020-05-15 02:48 | Diagnostic Imaging Report ---
EXAM: XR Chest, 1 View CLINICAL HISTORY: LINE TECHNIQUE: Frontal view of the chest. COMPARISON: 2 hours prior FINDINGS: Lungs: Retrocardiac atelectasis, without consolidation. Diffuse hazy bilateral lung attenuation could represent pulmonary edema or multifocal consolidation. Pleural space: Moderate right and small left pleural effusions with passive atelectasis, correlate to exclude consolidation. No pneumothorax. Heart: Unremarkable. No cardiomegaly. Mediastinum: Unremarkable. Bones/joints: Sternotomy with mediastinal operative findings. Tubes, lines and devices: ETT 4.3 cm above mariam. IMPRESSION: 1. ETT 4.3 cm above mariam. 2. Moderate right and small left pleural effusions with passive atelectasis, correlate to exclude consolidation. 3. Retrocardiac atelectasis, without consolidation. 4. Diffuse hazy bilateral lung attenuation could represent pulmonary edema or multifocal consolidation.
[2020-05-15] MEDS: Zoysn 3.37gm in NS 100ML IVPB SCH ×2 (02:56→12:21)
[2020-05-15] MEDS: Norepinephrine 4mg/NS Premix 250 ML IV SCH ×2 (03:27→16:04)
[2020-05-15] MEDS: Heparin 25,000u/D5W 500ml 500 ML IV SCH ×3 (04:25→10:59)
[2020-05-15 05:02] LABS: HEMATOCRIT 37.9 % (42.0-52.0); HEMOGLOBIN 11.9 G/DL (14.2-18.0); MEAN CORPUSCULAR VOLUME 97 FL (80-99); PLATELET COUNT 150 K/UL (150-450); RED BLOOD COUNT 3.92 M/UL (4.70-6.10); RED CELL DISTRIBUTION WIDTH 13.9 % (11.6-14.8); WHITE BLOOD COUNT 15.7 K/UL (4.8-10.8)
[2020-05-15 05:18] LABS: AMMONIA 41 umol/L (11-32)
[2020-05-15 05:40] LABS: CREATINE KINASE 146 U/L (26-308); GAMMA GLUTAMYL TRANSPEPTIDASE 50 U/L (5-85); PHOSPHORUS 5.6 MG/DL (2.5-4.9)
[2020-05-15 05:47] LABS: ALBUMIN 2.6 G/DL (3.4-5.0); ALBUMIN/GLOBULIN RATIO 0.9 (1.0-2.7); BILIRUBIN,TOTAL 1.7 MG/DL (0.2-1.0); CALCIUM 7.3 MG/DL (8.5-10.1); IRON 14 ug/dL (50-175); POTASSIUM 4.1 MMOL/L (3.5-5.1); TOTAL IRON BINDING CAPACITY 216 ug/dL (250-450)
[2020-05-15 05:53] LABS: % IRON SATURATION 6 % (15-50)
[2020-05-15 05:57] LABS: BILIRUBIN,DIRECT 0.9 MG/DL (0.0-0.3)
[2020-05-15 06:00] LABS: CHOLESTEROL 123 MG/DL (< 200); FERRITIN 181 NG/ML (8-388); HDL CHOLESTEROL 17 MG/DL (40-60); TRIGLYCERIDES 57 MG/DL (30-150)
--- NOTE | 2020-05-15 07:04 | General Progress Note ---
Subjective ROS Limited/Unobtainable: No Allergies: Coded Allergies: No Known Allergies (Unverified , 05/13/20) Objective Last 24 Hour Vital Signs Date Time Temp Pulse Resp B/P (MAP) Pulse Ox O2 Delivery O2 Flow Rate FiO2 05/15/20 06:30 98.8 112 24 91/71 (78) 95 05/15/20 06:15 118 20 92/65 (74) 95 05/15/20 06:15 119 25 87/59 (68) 93 05/15/20 06:02 112 20 92/65 (74) 95 05/15/20 06:00 118 20 77/34 (48) 95 05/15/20 05:30 125 20 129/49 (75) 100 05/15/20 05:00 110 20 111/72 (85) 100 05/15/20 04:45 118 20 88/58 (68) 100 05/15/20 04:30 113 20 95/74 (81) 98 05/15/20 04:15 115 20 90/67 (75) 97 05/15/20 04:00 100 05/15/20 04:00 115 05/15/20 04:00 Bi-pap 60.0 05/15/20 04:00 97.2 117 21 102/77 (85) 97 05/15/20 03:45 111 20 100/64 (76) 97 05/15/20 03:30 115 23 77/45 (56) 100 05/15/20 03:27 77/45 05/15/20 03:00 120 22 72/56 (61) 97 05/15/20 02:47 120 21 100 05/15/20 02:00 112 20 85/59 (68) 98 05/15/20 01:27 115 23 100 Mechanical Ventilator 100 112 20 100 05/15/20 01:00 116 21 79/53 (62) 05/15/20 00:00 129 05/15/20 00:00 Bi-pap 60.0 05/15/20 00:00 100 05/15/20 00:00 98.8 118 23 83/60 (68) 05/14/20 23:30 100 05/14/20 23:20 128 21 100 05/14/20 23:20 128 21 98 Mechanical Ventilator 100 05/14/20 23:05 114 25 116/59 94 05/14/20 23:00 107 33 87/38 (54) 91 05/14/20 22:33 94 25 95 40 05/14/20 22:00 99 26 96/71 (79) 98 05/14/20 21:00 99 23 72/53 (59) 100 05/14/20 21:00 95 85/59 05/14/20 20:00 Bi-pap 60.0 05/14/20 20:00 60 05/14/20 20:00 99.1 97 27 115/84 (94) 97 05/14/20 20:00 95 05/14/20 19:00 88 24 85/59 (68) 100 05/14/20 18:51 84 24 100 Bi-Pap 60 81 20 100 60 05/14/20 18:00 85 25 93/59 (70) 100 05/14/20 17:15 91 22 102/76 (85) 99 05/14/20 17:00 90 28 97/35 (55) 97 05/14/20 16:06 60 05/14/20 16:00 85 05/14/20 16:00 97.5 82 20 103/78 (86) 98 05/14/20 16:00 Bi-pap 60.0 05/14/20 15:21 85 27 99 60 05/14/20 15:00 84 20 91/63 (72) 99 05/14/20 14:24 74 05/14/20 14:00 80 28 98/81 (87) 99 05/14/20 13:45 74 21 92/65 (74) 94 05/14/20 13:30 71 25 77/56 (63) 99 05/14/20 13:15 69 19 82/52 (62) 98 05/14/20 13:00 77 26 110/81 (91) 96 05/14/20 12:30 112 30 115/72 (86) 96 05/14/20 12:20 60 05/14/20 12:00 Bi-pap 60.0 05/14/20 12:00 98.2 124 30 116/83 (94) 96 05/14/20 11:52 112 05/14/20 11:30 118 31 99/86 (90) 94 05/14/20 11:28 135 35 93 60 05/14/20 11:00 122 31 98/65 (76) 94 05/14/20 10:30 129 25 137/85 (102) 95 05/14/20 10:15 132 31 132/86 (101) 93 05/14/20 10:00 130 35 135/88 (104) 95 05/14/20 10:00 129 14 138/80 (99) 92 05/14/20 09:45 135 35 140/82 (101) 96 05/14/20 09:34 142 140/88 05/14/20 09:30 139 22 169/87 (114) 95 05/14/20 09:00 139 22 140/88 (105) 96 05/14/20 08:00 60 05/14/20 08:00 Bi-pap 60.0 05/14/20 08:00 97.9 146 28 156/102 (120) 95 05/14/20 07:45 125 05/14/20 07:24 152 33 91 60 Intake and Output 05/14/20 05/15/20 19:00 07:00 Intake Total 1193.711 ml 1213.857 ml Output Total 415 ml 230 ml Balance 778.711 ml 983.857 ml Intake Oral 0 ml 0 ml IV Total 1193.711 ml 1213.857 ml Output Urine Total 415 ml 230 ml Laboratory Tests 05/14/20 10:13: Arterial Blood pH 7.236*L, Arterial Blood Partial Pressure CO2 37.8, Arterial Blood Partial Pressure O2 76.7, Arterial Blood HCO3 15.7*L, Arterial Blood Oxygen Saturation 91.1L, Arterial Blood Base Excess -11.0*L, Amaury Test N/a 05/14/20 13:20: Activated Partial Thromboplast Time 68H 05/14/20 14:40: Arterial Blood pH 7.357, Arterial Blood Partial Pressure CO2 27.6L, Arterial Blood Partial Pressure O2 134.2H, Arterial Blood HCO3 15.1*L, Arterial Blood Oxygen Saturation 98.2, Arterial Blood Base Excess -8.8L, Amaury Test Positive 05/14/20 16:30: Urine Random Sodium < 20L 05/14/20 18:30: Random Vancomycin Level 10.3 05/14/20 21:10: Arterial Blood pH 7.286L, Arterial Blood Partial Pressure CO2 31.0L, Arterial Blood Partial Pressure O2 134.0H, Arterial Blood HCO3 14.4*L, Arterial Blood Oxygen Saturation 97.9, Arterial Blood Base Excess -10.9*L, Amaury Test Positive 05/15/20 00:47: Arterial Blood pH 7.216*L, Arterial Blood Partial Pressure CO2 32.6L, Arterial Blood Partial Pressure O2 83.5, Arterial Blood HCO3 12.9*L, Arterial Blood Oxygen Saturation 93.5L, Arterial Blood Base Excess -13.7*L, Amaury Test Positive 05/15/20 04:10: White Blood Count 15.7#H, Red Blood Count 3.92L, Hemoglobin 11.9L, Hematocrit 37.9L, Mean Corpuscular Volume 97, Mean Corpuscular Hemoglobin 30.4, Mean Corpuscular Hemoglobin Concent 31.5L, Red Cell Distribution Width 13.9, Platelet Count 150, Mean Platelet Volume 8.8, Neutrophils (%) (Auto) , Lymphocytes (%) (Auto) , Monocytes (%) (Auto) , Eosinophils (%) (Auto) , Basophils (%) (Auto) , Neutrophils % (Manual) [Pending], Lymphocytes % (Manual) [Pending], Platelet Estimate [Pending], Platelet Morphology [Pending], Activated Partial Thromb oplast Time 45H, Sodium Level 136, Potassium Level 4.1, Chloride Level 104, Carbon Dioxide Level 18L, Anion Gap 14, Blood Urea Nitrogen 67H, Creatinine 3.0#H, Estimat Glomerular Filtration Rate 19.8, Glucose Level 187H, Hemoglobin A1c 6.4H, Uric Acid 12.1H, Calcium Level 7.3L, Phosphorus Level 5.6H, Magnesium Level 2.2, Iron Level 14L, Total Iron Binding Capacity 216L, Percent Iron Saturation 6L, Unsaturated Iron Binding 202, Ferritin 181, Total Bilirubin 1.7H, Direct Bilirubin 0.9H, Gamma Glutamyl Transpeptidase 50, Aspartate Amino Transf (AST/SGOT) 744H, Alanine Aminotransferase (ALT/SGPT) 679H, Alkaline Phosphatase 110, Ammonia 41H, Total Creatine Kinase 146, Troponin I 0.499H, C-Reactive Protein, Quantitative 4.9H, Pro-B-Type Natriuretic Peptide 76509X, Total Protein 5.6L, Albumin 2.6L, Globulin 3.0, Albumin/Globulin Ratio 0.9L, Triglycerides Level 57, Cholesterol Level 123, LDL Cholesterol 94, HDL Cholesterol 17L, Cholesterol/HDL Ratio 7.2H, Lipase 284, Vitamin B12 Level > 2000H, Folate 19.1, Thyroid Stimulating Hormone (TSH) 1.428, Free Thyroxine 1.81H, Digoxin Level < 0.3L Height (Feet): 5 Height (Inches): 3.00 Weight (Pounds): 140 General Appearance: lethargic EENT: normal ENT inspection Neck: supple Cardiovascular: tachycardia Respiratory/Chest: decreased breath sounds Abdomen: hypoactive bowel sounds Extremities: non-tender Assessment/Plan Problem List: (1) Rapid atrial fibrillation ICD Codes: I48.91 - Unspecified atrial fibrillation SNOMED: 720800902 (2) Altered level of consciousness ICD Codes: R40.4 - Transient alteration of awareness SNOMED: 2879710 (3) Hypoxia ICD Codes: R09.02 - Hypoxemia SNOMED: 015726720 (4) Abnormal LFTs ICD Codes: R94.5 - Abnormal results of liver function studies SNOMED: 524875692 Assessment/Plan: respiratory failure DM shock liver s/p code blue place NGT start NGTF repeat labs poor prognosis Mateo Bowman MD May 15, 2020 07:04
--- NOTE | 2020-05-15 08:29 | Diagnostic Imaging Report ---
EXAM: US Abdomen Complete CLINICAL HISTORY: ABN LABS TECHNIQUE: Real-time ultrasound of the abdomen with image documentation. COMPARISON: Chest radiograph May 15, 2020 FINDINGS: Liver: The liver is increased in echogenicity, consistent with hepatic steatosis. No intrahepatic bile duct dilation. Gallbladder: Status post cholecystectomy. Common bile duct: The common bile duct is not dilated and measures 3 mm. Pancreas: The pancreas is not visualized well enough for reliable assessment. Kidneys: The right kidney measures 9.3 cm. No hydronephrosis or nephrolithiasis. The left kidney measures 9.4 cm. No hydronephrosis or nephrolithiasis. Spleen: The spleen measures 7.5 cm. Aorta and IVC: The abdominal aorta and inferior vena cava are within normal limits. The aorta measures 1.0 cm. Pleural space: Small bilateral pleural effusions, incidentally noted. IMPRESSION: Hepatic steatosis. Cholecystectomy. Nondilated common bile duct measuring 3 mm. No hydronephrosis or nephrolithiasis. Small bilateral pleural effusions.
[2020-05-15] MEDS ORDERED: Pantoprazole Inj IVP SCH (09:00)
[2020-05-15] MEDS ORDERED: Digoxin 0.125mg tab ORAL SCH (09:00)
--- NOTE | 2020-05-15 09:47 | Pulmonolgy Critical Care Note ---
Erika An TECHNICAL ACCOUNT MANAGER 05/15/20 0947: Critical Care - Asmt/Plan Assessment/Plan: ASSESSMENT s/p cardiopulmonary arrest Acute hypoxemic respiratory failure, requiring intubation ( prior BiPAP on admission) Shock PNA/ CAP vs aspiration BL pleural effusion, R>L A fib with RVR -new onset Acute toxic metabolic encephalopathy ANGELIA ? 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 NSTEMI HTN CAD BPH PLAN OF CARE ICU s/p CP arrest 05/14 night, intubated ABG this am - titrate Fio2 to keep sat above 92 pulm toilet vent support fup with CXR and ABG pressors/Levo, titrate to keep mean arterial BP > 65 cardio on board off Cardizem gtt, rate overall controlled with BB and Dig heparin gtt Venous Duplex+ BL LE DVT ECHO with rEF 35-40% , severe MR, severe pulmonary HTN discussed with cardio to reduce or stop IVF ( pt is in renal failure but higher risk for fluid overload given CM) cardio will see pt soon and make a decision continue DAPT abx fup with cx ID follows BCX NGTD monitor renal paramerts., lytes correct lytes as needed avoid nephrotoxics renal US ni hydro continue Proscar and Flomax nephro eval apprecaited neuro eval appreciated MRI brain pending GI prophylaxis trend LFT with trend up likely due to shock liver GI follows abd US + hepatic steatosis, no biliary duct dilatation aspiration precautions NGT for meds and nutrition as ordered by GI supportive care overall prognosis poor case discussed and evaluated by supervising physician Critical Care - Objective Last 24 Hour Vital Signs Date Time Temp Pulse Resp B/P (MAP) Pulse Ox O2 Delivery O2 Flow Rate FiO2 05/15/20 08:30 111 20 93/65 (74) 96 05/15/20 08:00 100 05/15/20 08:00 Bi-pap 60.0 05/15/20 08:00 106 20 100/78 (85) 97 05/15/20 07:45 105 21 98 Mechanical Ventilator 100 114 20 100 05/15/20 07:30 106 20 97/61 (73) 96 05/15/20 07:00 98.4 101 20 107/75 (86) 94 05/15/20 07:00 106 20 90/57 (68) 96 05/15/20 06:30 98.8 112 24 91/71 (78) 95 05/15/20 06:15 118 20 92/65 (74) 95 05/15/20 06:15 119 25 87/59 (68) 93 05/15/20 06:02 112 20 92/65 (74) 95 05/15/20 06:00 118 20 77/34 (48) 95 05/15/20 05:30 125 20 129/49 (75) 100 05/15/20 05:00 110 20 111/72 (85) 100 05/15/20 04:45 118 20 88/58 (68) 100 05/15/20 04:30 113 20 95/74 (81) 98 05/15/20 04:15 115 20 90/67 (75) 97 05/15/20 04:00 100 05/15/20 04:00 115 05/15/20 04:00 Bi-pap 60.0 05/15/20 04:00 97.2 117 21 102/77 (85) 97 05/15/20 03:45 111 20 100/64 (76) 97 05/15/20 03:30 115 23 77/45 (56) 100 05/15/20 03:27 77/45 05/15/20 03:00 120 22 72/56 (61) 97 05/15/20 02:47 120 21 100 05/15/20 02:00 112 20 85/59 (68) 98 05/15/20 01:27 115 23 100 Mechanical Ventilator 100 112 20 100 05/15/20 01:00 116 21 79/53 (62) 05/15/20 00:00 129 05/15/20 00:00 Bi-pap 60.0 05/15/20 00:00 100 05/15/20 00:00 98.8 118 23 83/60 (68) 05/14/20 23:30 100 05/14/20 23:20 128 21 100 05/14/20 23:20 128 21 98 Mechanical Ventilator 100 05/14/20 23:05 114 25 116/59 94 05/14/20 23:00 107 33 87/38 (54) 91 05/14/20 22:33 94 25 95 40 05/14/20 22:00 99 26 96/71 (79) 98 05/14/20 21:00 99 23 72/53 (59) 100 05/14/20 21:00 95 85/59 05/14/20 20:00 Bi-pap 60.0 05/14/20 20:00 60 05/14/20 20:00 99.1 97 27 115/84 (94) 97 05/14/20 20:00 95 05/14/20 19:00 88 24 85/59 (68) 100 05/14/20 18:51 84 24 100 Bi-Pap 60 81 20 100 60 05/14/20 18:00 85 25 93/59 (70) 100 05/14/20 17:15 91 22 102/76 (85) 99 05/14/20 17:00 90 28 97/35 (55) 97 05/14/20 16:06 60 05/14/20 16:00 85 05/14/20 16:00 97.5 82 20 103/78 (86) 98 05/14/20 16:00 Bi-pap 60.0 05/14/20 15:21 85 27 99 60 05/14/20 15:00 84 20 91/63 (72) 99 05/14/20 14:24 74 05/14/20 14:00 80 28 98/81 (87) 99 05/14/20 13:45 74 21 92/65 (74) 94 05/14/20 13:30 71 25 77/56 (63) 99 05/14/20 13:15 69 19 82/52 (62) 98 05/14/20 13:00 77 26 110/81 (91) 96 05/14/20 12:30 112 30 115/72 (86) 96 05/14/20 12:20 60 05/14/20 12:00 Bi-pap 60.0 05/14/20 12:00 98.2 124 30 116/83 (94) 96 05/14/20 11:52 112 05/14/20 11:30 118 31 99/86 (90) 94 05/14/20 11:28 135 35 93 60 05/14/20 11:00 122 31 98/65 (76) 94 05/14/20 10:30 129 25 137/85 (102) 95 05/14/20 10:15 132 31 132/86 (101) 93 05/14/20 10:00 130 35 135/88 (104) 95 05/14/20 10:00 129 14 138/80 (99) 92 05/14/20 09:45 135 35 140/82 (101) 96 05/14/20 09:34 142 140/88 05/14/20 09:30 139 22 169/87 (114) 95 Objective: General Appearance: Mauritian speaking elderly male intubated on vent AC Lines, tubes and drains: R femoral CL intact HEENT: normocephalic, atraumatic, anicteric, ET in place, intact Neck: supple Respiratory/Chest: intubated, few scattered rhonchi Cardiovascular/Chest: irregularly irregular - A fib with low tachy Abdomen: normal bowel sounds, non tender, soft Genitourinary/Rectal: [place] Extremities: non-tender, normal inspection, no calf tenderness, normal capillary refill Skin Exam: warm/dry Neurologic: sedated, no gross focal Musculoskeletal: atrophy - BLE Micro: Microbiology Date/Time Source Procedure Growth Status 05/13/20 18:40 Nasal Nares MRSA Culture - Final NO METHICILLIN RESISTANT STAPH AUREUS... Complete 05/13/20 18:20 Nasopharynx SARS-CoV-2 RdRp Gene Assay - Final Complete 05/13/20 18:00 Blood Blood Culture - Preliminary NO GROWTH AFTER 24 HOURS Resulted 05/13/20 17:30 Blood Blood Culture - Preliminary NO GROWTH AFTER 24 HOURS Resulted Critical Care - Subjective ROS Limited/Unobtainable: Yes Interval Events: s/p CP arrest 05/14 at night, intuabted on vent AC 100% FiO2 no fevers, +leukocytosis this am off Cardizem drip , rate overall controlled with Dig and BB remains in A fib low tachy on Heparin gtt Venous Duplex BL DVT_ acute DVT BLE ECHO with rEF 35-40% troponin this am elevated creat up to 3 AST and ALT increased significantly Condition: critical IV Access: central - R femoral intact EKG Rhythm: Atrial Fibrillation - low tachy FI02: 100 Vent Support Breath Rate: 20 Vent Support Mode: AC Vent Tidal Volume: 550 Sputum Amount: Small PEEP: 5.0 PIP: 23 Fluids: NS at 75 Drips: Levo 6 mcg/min; Heparin gtt I&O: Intake and Output 05/14/20 05/15/20 19:00 07:00 Intake Total 1193.711 ml 1288.857 ml Output Total 415 ml 245 ml Balance 778.711 ml 1043.857 ml Intake Oral 0 ml 0 ml IV Total 1193.711 ml 1288.857 ml Output Urine Total 415 ml 245 ml CXR: CXR 05/14 postintubation 23:50 1. ETT 4.3 cm above mariam. 2. Moderate right and small left pleural effusions with passive atelectasis, correlate to exclude consolidation. 3. Retrocardiac atelectasis, without consolidation. 4. Diffuse hazy bilateral lung attenuation could represent pulmonary edema or multifocal consolidation. ET-Tube: 7.5 ET Position: 25 Dave Leonard MD 05/15/20 1318: Critical Care - Asmt/Plan Respiratory: monitor respiratory rate, adjust FIO2, CXR, ABG Cardiac: continue pressors, continue to monitor HR/BP Renal: check electrolytes Infectious Disease: continue antibiotics Gastrointestinal: hold feedings Endocrine: monitor blood sugar Neurologic: keep patient comfortable Prophylaxis: Heparin Disposition: keep in ICU Time Spent (Minutes): 40 Notes Reviewed: cardio, renal, ID, GI Discussed with: nurses, consultants Eirka An NP May 15, 2020 09:47 Dave Leonard MD May 15, 2020 13:18
--- NOTE | 2020-05-15 10:28 | Nephrology Progress Note ---
Assessment/Plan Problem List: (1) ANGELIA (acute kidney injury) (2) Acute on chronic renal failure (3) Abnormal LFTs (4) Septic shock (5) Pneumonia (6) Rapid atrial fibrillation Assessment Acute renal failure, possibly chronic kidney disease underlying BPH History of hypertension, presents with hypotension Atrial fibrillation with rapid ventricular rate Coronary artery disease with elevated troponin Bilateral DVT on heparin drip Respiratory failure on BiPAP, bilateral pleural effusion Pneumonia possible aspiration Plan May 15: Patient coded last night. Now intubated. Low blood pressure. Low urine output. On pressors. Serum creatinine higher. Will give fluid challenge. Continue to monitor renal parameters. Continue per cardiology and pulmonary. Optimize pulmonary and cardiac status Monitor renal parameters Avoid nephrotoxic's Keep the electrolytes in check Urine studies Per consultants Per orders Subjective ROS Limited/Unobtainable: Yes Objective Objective Last 24 Hour Vital Signs Date Time Temp Pulse Resp B/P (MAP) Pulse Ox O2 Delivery O2 Flow Rate FiO2 05/15/20 08:30 111 20 93/65 (74) 96 05/15/20 08:00 100 05/15/20 08:00 Bi-pap 60.0 05/15/20 08:00 106 20 100/78 (85) 97 05/15/20 07:45 105 21 98 Mechanical Ventilator 100 114 20 100 05/15/20 07:30 106 20 97/61 (73) 96 05/15/20 07:00 98.4 101 20 107/75 (86) 94 05/15/20 07:00 106 20 90/57 (68) 96 05/15/20 06:30 98.8 112 24 91/71 (78) 95 05/15/20 06:15 118 20 92/65 (74) 95 05/15/20 06:15 119 25 87/59 (68) 93 05/15/20 06:02 112 20 92/65 (74) 95 05/15/20 06:00 118 20 77/34 (48) 95 05/15/20 05:30 125 20 129/49 (75) 100 05/15/20 05:00 110 20 111/72 (85) 100 05/15/20 04:45 118 20 88/58 (68) 100 05/15/20 04:30 113 20 95/74 (81) 98 05/15/20 04:15 115 20 90/67 (75) 97 05/15/20 04:00 100 05/15/20 04:00 115 05/15/20 04:00 Bi-pap 60.0 05/15/20 04:00 97.2 117 21 102/77 (85) 97 05/15/20 03:45 111 20 100/64 (76) 97 05/15/20 03:30 115 23 77/45 (56) 100 05/15/20 03:27 77/45 05/15/20 03:00 120 22 72/56 (61) 97 05/15/20 02:47 120 21 100 05/15/20 02:00 112 20 85/59 (68) 98 05/15/20 01:27 115 23 100 Mechanical Ventilator 100 112 20 100 05/15/20 01:00 116 21 79/53 (62) 05/15/20 00:00 129 05/15/20 00:00 Bi-pap 60.0 05/15/20 00:00 100 05/15/20 00:00 98.8 118 23 83/60 (68) 05/14/20 23:30 100 05/14/20 23:20 128 21 100 05/14/20 23:20 128 21 98 Mechanical Ventilator 100 05/14/20 23:05 114 25 116/59 94 05/14/20 23:00 107 33 87/38 (54) 91 05/14/20 22:33 94 25 95 40 05/14/20 22:00 99 26 96/71 (79) 98 05/14/20 21:00 99 23 72/53 (59) 100 05/14/20 21:00 95 85/59 05/14/20 20:00 Bi-pap 60.0 05/14/20 20:00 60 05/14/20 20:00 99.1 97 27 115/84 (94) 97 05/14/20 20:00 95 05/14/20 19:00 88 24 85/59 (68) 100 05/14/20 18:51 84 24 100 Bi-Pap 60 81 20 100 60 05/14/20 18:00 85 25 93/59 (70) 100 05/14/20 17:15 91 22 102/76 (85) 99 05/14/20 17:00 90 28 97/35 (55) 97 05/14/20 16:06 60 05/14/20 16:00 85 11/25/20 16:00 97.5 82 20 103/78 (86) 98 05/14/20 16:00 Bi-pap 60.0 05/14/20 15:21 85 27 99 60 05/14/20 15:00 84 20 91/63 (72) 99 05/14/20 14:24 74 05/14/20 14:00 80 28 98/81 (87) 99 05/14/20 13:45 74 21 92/65 (74) 94 05/14/20 13:30 71 25 77/56 (63) 99 05/14/20 13:15 69 19 82/52 (62) 98 05/14/20 13:00 77 26 110/81 (91) 96 05/14/20 12:30 112 30 115/72 (86) 96 05/14/20 12:20 60 05/14/20 12:00 Bi-pap 60.0 05/14/20 12:00 98.2 124 30 116/83 (94) 96 05/14/20 11:52 112 05/14/20 11:30 118 31 99/86 (90) 94 05/14/20 11:28 135 35 93 60 05/14/20 11:00 122 31 98/65 (76) 94 05/14/20 10:30 129 25 137/85 (102) 95 Intake and Output 05/14/20 05/15/20 19:00 07:00 Intake Total 1193.711 ml 1288.857 ml Output Total 415 ml 245 ml Balance 778.711 ml 1043.857 ml Intake Oral 0 ml 0 ml IV Total 1193.711 ml 1288.857 ml Output Urine Total 415 ml 245 ml Current Medications Medications (Trade) Dose Ordered Sig/Adalberto Route PRN Reason Start Time Stop Time Status Last Admin Dose Admin Albumin Human 500 ml @ 0 mls/hr Q0M ONCE IV 05/15/20 10:30 05/15/20 10:31 UNV Aspirin (Ecotrin) 81 mg DAILY ORAL 05/14/20 09:00 06/28/20 08:59 05/14/20 09:34 Clopidogrel Bisulfate (Plavix) 75 mg DAILY ORAL 05/14/20 09:00 06/13/20 08:59 05/14/20 09:32 Digoxin (Lanoxin) 0.125 mg DAILY ORAL 05/15/20 09:00 08/13/20 08:59 Doxycycline Hyclate 100 mg/ Dextrose 100 ml @ 100 mls/hr Q12HR IV 05/14/20 21:00 05/21/20 20:59 05/15/20 09:53 Finasteride (Proscar) 5 mg DAILY ORAL 05/14/20 09:00 08/12/20 08:59 05/14/20 09:34 Heparin Sodium/ Dextrose 500 ml @ 19.051 mls/ hr ADJUST PER PROTOCOL IV 05/15/20 06:00 06/14/20 05:59 Levalbuterol HCl (Xopenex) 1.25 mg Q6HRT HHN 05/15/20 01:00 05/20/20 00:59 05/15/20 07:45 Levothyroxine Sodium (Synthroid) 125 mcg DAILY ORAL 05/14/20 09:00 06/13/20 08:59 05/14/20 09:34 Lorazepam (Ativan 2mg/ml 1ml) 0.5 mg Q4H PRN IV Agitation 05/14/20 21:07 05/21/20 21:06 05/14/20 23:05 Metoprolol Tartrate (Lopressor) 25 mg EVERY 12 HOURS ORAL 05/14/20 09:00 08/12/20 08:59 05/14/20 09:34 Mirtazapine (Remeron) 45 mg BEDTIME ORAL 05/14/20 21:00 08/12/20 20:59 05/14/20 21:35 Norepinephrine Bitartrate 250 ml @ 0 mls/hr Q24H IV 05/15/20 03:00 05/18/20 02:49 05/15/20 03:27 Ondansetron HCl (Zofran) 4 mg Q6H PRN IVP Nausea & Vomiting 05/13/20 22:00 06/12/20 21:59 Pantoprazole (Protonix) 40 mg DAILY IVP 05/15/20 09:00 06/14/20 08:59 05/15/20 09:53 Piperacillin Sod/ Tazobactam Sod 3.375 gm/Sodium Chloride 110 ml @ 27.5 mls/hr Q8H IVPB 05/14/20 10:00 05/21/20 09:59 05/15/20 02:56 Sodium Chloride 500 ml @ 999 mls/hr Q31M ONCE IV 05/15/20 10:30 05/15/20 11:00 UNV Sodium Chloride 1,000 ml @ 100 mls/hr Q10H IV 05/13/20 22:00 06/12/20 21:59 05/14/20 13:00 [facility] 1 ea DAILY PRN MISC Per rx protocol 05/13/20 22:00 06/12/20 21:59 Laboratory Tests 05/14/20 13:20: Activated Partial Thromboplast Time 68H 05/14/20 14:40: Arterial Blood pH 7.357, Arterial Blood Partial Pressure CO2 27.6L, Arterial Blood Partial Pressure O2 134.2H, Arterial Blood HCO3 15.1*L, Arterial Blood Oxygen Saturation 98.2, Arterial Blood Base Excess -8.8L, Amaury Test Positive 05/14/20 16:30: Urine Random Sodium < 20L 05/14/20 18:30: Random Vancomycin Level 10.3 05/14/20 21:10: Arterial Blood pH 7.286L, Arterial Blood Partial Pressure CO2 31.0L, Arterial Blood Partial Pressure O2 134.0H, Arterial Blood HCO3 14.4*L, Arterial Blood Oxygen Saturation 97.9, Arterial Blood Base Excess -10.9*L, Amaury Test Positive 05/15/20 00:47: Arterial Blood pH 7.216*L, Arterial Blood Partial Pressure CO2 32.6L, Arterial Blood Partial Pressure O2 83.5, Arterial Blood HCO3 12.9*L, Arterial Blood Oxygen Saturation 93.5L, Arterial Blood Base Excess -13.7*L, Amaury Test Positive 05/15/20 04:10: White Blood Count 15.7#H, Red Blood Count 3.92L, Hemoglobin 11.9L, Hematocrit 37.9L, Mean Corpuscular Volume 97, Mean Corpuscular Hemoglobin 30.4, Mean Corpuscular Hemoglobin Concent 31.5L, Red Cell Distribution Width 13.9, Platelet Count 150, Mean Platelet Volume 8.8, Neutrophils (%) (Auto) , Lymphocytes (%) (Auto) , Monocytes (%) (Auto) , Eosinophils (%) (Auto) , Basophils (%) (Auto) , Neutrophils % (Manual) [Pending], Lymphocytes % (Manual) [Pending], Platelet Estimate [Pending], Platelet Morphology [Pending], Activated Partial T hromboplast Time 45H, Sodium Level 136, Potassium Level 4.1, Chloride Level 104, Carbon Dioxide Level 18L, Anion Gap 14, Blood Urea Nitrogen 67H, Creatinine 3.0#H, Estimat Glomerular Filtration Rate 19.8, Glucose Level 187H, Hemoglobin A1c 6.4H, Uric Acid 12.1H, Calcium Level 7.3L, Phosphorus Level 5.6H, Magnesium Level 2.2, Iron Level 14L, Total Iron Binding Capacity 216L, Percent Iron Saturation 6L, Unsaturated Iron Binding 202, Ferritin 181, Total Bilirubin 1.7H, Direct Bilirubin 0.9H, Gamma Glutamyl Transpeptidase 50, Aspartate Amino Transf (AST/SGOT) 744H, Alanine Aminotransferase (ALT/SGPT) 679H, Alkaline Phosphatase 110, Ammonia 41H, Total Creatine Kinase 146, Troponin I 0.499H, C-Reactive Protein, Quantitative 4.9H, Pro-B-Type Natriuretic Peptide 41101E, Total Protein 5.6L, Albumin 2.6L, Globulin 3.0, Albumin/Globulin Ratio 0.9L, Triglycerides Level 57, Cholesterol Level 123, LDL Cholesterol 94, HDL Cholesterol 17L, Cholesterol/HDL Ratio 7.2H, Lipase 284, Vitamin B12 Level > 2000H, Folate 19.1, Thyroid Stimulating Hormone (TSH) 1.428, Free Thyroxine 1.81H, Digoxin Level < 0.3L 05/15/20 08:08: Activated Partial Thromboplast Time 48H 05/15/20 08:42: Arterial Blood pH 7.367, Arterial Blood Partial Pressure CO2 31.1L, Arterial Blood Partial Pressure O2 160.3H, Arterial Blood HCO3 17.5*L, Arterial Blood Oxygen Saturation 98.7, Arterial Blood Base Excess -6.8L, Amaury Test Positive Height (Feet): 5 Height (Inches): 3.00 Weight (Pounds): 140 General Appearance: no apparent distress EENT: other - Now intubated on ventilator Cardiovascular: tachycardia Respiratory/Chest: decreased breath sounds Abdomen: distended Eugene Miller MD May 15, 2020 10:28
[2020-05-15] MEDS ORDERED: Heparin 5000 units/ml inj IV SCH (10:45)
--- NOTE | 2020-05-15 11:03 | Cardiac Electrophysiology PN ---
Assessment/Plan Assessment/Plan 1. Atrial fibrillation with rapid ventricular response with heart rate of 140s. Off Cardizem drip . Ejection fraction of 35 to 40% as well as critical aortic stenosis with aortic valve area of 0.5 and severe MD. On digoxin and metoprolol and heparin for anticoagulation. 2. Coronary artery disease with elevated troponin. 2/3 troponins mildly elevated that could be due to renal failure Patient is on aspirin and Plavix and metoprolol 25 mg b.i.d. 3. Bilateral DVT, on heparin drip. 4. CHF with EF 35%. On Dig and Metoprolol. May need dobutamine 5. Respiratory failure, on the Vent now 6. Acute renal failure with Cr rise to 3. on iv fluid per Dr. Angela URBINA RN and Dr Bui Subjective Subjective Coded for respiratory failure after got Ativan for agitation. On the Vent with 80% Fio2. On heparin drip for LE DVT and ACS Objective Last 24 Hour Vital Signs Date Time Temp Pulse Resp B/P (MAP) Pulse Ox O2 Delivery O2 Flow Rate FiO2 05/15/20 08:30 111 20 93/65 (74) 96 05/15/20 08:00 100 05/15/20 08:00 Bi-pap 60.0 05/15/20 08:00 106 20 100/78 (85) 97 05/15/20 07:45 105 21 98 Mechanical Ventilator 100 114 20 100 05/15/20 07:30 106 20 97/61 (73) 96 05/15/20 07:00 98.4 101 20 107/75 (86) 94 05/15/20 07:00 106 20 90/57 (68) 96 05/15/20 06:30 98.8 112 24 91/71 (78) 95 05/15/20 06:15 118 20 92/65 (74) 95 05/15/20 06:15 119 25 87/59 (68) 93 05/15/20 06:02 112 20 92/65 (74) 95 05/15/20 06:00 118 20 77/34 (48) 95 05/15/20 05:30 125 20 129/49 (75) 100 05/15/20 05:00 110 20 111/72 (85) 100 05/15/20 04:45 118 20 88/58 (68) 100 11/26/20 04:30 113 20 95/74 (81) 98 05/15/20 04:15 115 20 90/67 (75) 97 05/15/20 04:00 100 05/15/20 04:00 115 05/15/20 04:00 Bi-pap 60.0 05/15/20 04:00 97.2 117 21 102/77 (85) 97 05/15/20 03:45 111 20 100/64 (76) 97 05/15/20 03:30 115 23 77/45 (56) 100 05/15/20 03:27 77/45 05/15/20 03:00 120 22 72/56 (61) 97 05/15/20 02:47 120 21 100 05/15/20 02:00 112 20 85/59 (68) 98 05/15/20 01:27 115 23 100 Mechanical Ventilator 100 112 20 100 05/15/20 01:00 116 21 79/53 (62) 05/15/20 00:00 129 05/15/20 00:00 Bi-pap 60.0 05/15/20 00:00 100 05/15/20 00:00 98.8 118 23 83/60 (68) 05/14/20 23:30 100 05/14/20 23:20 128 21 100 05/14/20 23:20 128 21 98 Mechanical Ventilator 100 05/14/20 23:05 114 25 116/59 94 05/14/20 23:00 107 33 87/38 (54) 91 05/14/20 22:33 94 25 95 40 05/14/20 22:00 99 26 96/71 (79) 98 05/14/20 21:00 99 23 72/53 (59) 100 05/14/20 21:00 95 85/59 05/14/20 20:00 Bi-pap 60.0 05/14/20 20:00 60 05/14/20 20:00 99.1 97 27 115/84 (94) 97 05/14/20 20:00 95 05/14/20 19:00 88 24 85/59 (68) 100 05/14/20 18:51 84 24 100 Bi-Pap 60 81 20 100 60 05/14/20 18:00 85 25 93/59 (70) 100 05/14/20 17:15 91 22 102/76 (85) 99 05/14/20 17:00 90 28 97/35 (55) 97 05/14/20 16:06 60 05/14/20 16:00 85 05/14/20 16:00 97.5 82 20 103/78 (86) 98 05/14/20 16:00 Bi-pap 60.0 05/14/20 15:21 85 27 99 60 05/14/20 15:00 84 20 91/63 (72) 99 05/14/20 14:24 74 05/14/20 14:00 80 28 98/81 (87) 99 05/14/20 13:45 74 21 92/65 (74) 94 05/14/20 13:30 71 25 77/56 (63) 99 05/14/20 13:15 69 19 82/52 (62) 98 05/14/20 13:00 77 26 110/81 (91) 96 05/14/20 12:30 112 30 115/72 (86) 96 05/14/20 12:20 60 05/14/20 12:00 Bi-pap 60.0 05/14/20 12:00 98.2 124 30 116/83 (94) 96 05/14/20 11:52 112 05/14/20 11:30 118 31 99/86 (90) 94 05/14/20 11:28 135 35 93 60 05/14/20 11:00 122 31 98/65 (76) 94 Intake and Output 05/14/20 05/15/20 19:00 07:00 Intake Total 1193.711 ml 1288.857 ml Output Total 415 ml 245 ml Balance 778.711 ml 1043.857 ml Intake Oral 0 ml 0 ml IV Total 1193.711 ml 1288.857 ml Output Urine Total 415 ml 245 ml Laboratory Tests Test 05/14/20 13:20 05/14/20 14:40 05/14/20 16:30 05/14/20 18:30 Activated Partial Thromboplast Time 68 SEC (23-33) H Arterial Blood pH 7.357 (7.350-7.450) Arterial Blood Partial Pressure CO2 27.6 mmHg (35.0-45.0) L Arterial Blood Partial Pressure O2 134.2 mmHg (75.0-100.0) H Arterial Blood HCO3 15.1 mmol/L (22.0-26.0) *L Arterial Blood Oxygen Saturation 98.2 % (95-100) Arterial Blood Base Excess -8.8 (-2-2) L Amaury Test Positive Urine Random Sodium < 20 mmol/L (20-110) L Random Vancomycin Level 10.3 ug/mL Test 05/14/20 21:10 05/15/20 00:47 05/15/20 04:10 05/15/20 08:08 Arterial Blood pH 7.286 (7.350-7.450) 7.216 (7.350-7.450) Arterial Blood Partial Pressure CO2 31.0 mmHg (35.0-45.0) L 32.6 mmHg (35.0-45.0) L Arterial Blood Partial Pressure O2 134.0 mmHg (75.0-100.0) H 83.5 mmHg (75.0-100.0) Arterial Blood HCO3 14.4 mmol/L (22.0-26.0) *L 12.9 mmol/L (22.0-26.0) *L Arterial Blood Oxygen Saturation 97.9 % (95-100) 93.5 % (95-100) L Arterial Blood Base Excess -10.9 (-2-2) *L -13.7 (-2-2) *L Amaury Test Positive Positive White Blood Count 15.7 K/UL (4.8-10.8) #H Red Blood Count 3.92 M/UL (4.70-6.10) L Hemoglobin 11.9 G/DL (14.2-18.0) L Hematocrit 37.9 % (42.0-52.0) L Mean Corpuscular Volume 97 FL (80-99) Mean Corpuscular Hemoglobin 30.4 PG (27.0-31.0) Mean Corpuscular Hemoglobin Concent 31.5 G/DL (32.0-36.0) L Red Cell Distribution Width 13.9 % (11.6-14.8) Platelet Count 150 K/UL (150-450) Mean Platelet Volume 8.8 FL (6.5-10.1) Neutrophils (%) (Auto) % (45.0-75.0) Lymphocytes (%) (Auto) % (20.0-45.0) Monocytes (%) (Auto) % (1.0-10.0) Eosinophils (%) (Auto) % (0.0-3.0) Basophils (%) (Auto) % (0.0-2.0) Differential Total Cells Counted 100 Neutrophils % (Manual) 90 % (45-75) H Lymphocytes % (Manual) 3 % (20-45) L Monocytes % (Manual) 7 % (1-10) Eosinophils % (Manual) 0 % (0-3) Basophils % (Manual) 0 % (0-2) Band Neutrophils 0 % (0-8) Platelet Estimate Adequate Platelet Morphology Normal Hypochromasia 1+ Macrocytosis 1+ Gwen Cells Occasional Schistocytes Rare Activated Partial Thromboplast Time 45 SEC (23-33) H 48 SEC (23-33) H Sodium Level 136 MMOL/L (136-145) Potassium Level 4.1 MMOL/L (3.5-5.1) Chloride Level 104 MMOL/L (98-107) Carbon Dioxide Level 18 MMOL/L (21-32) L Anion Gap 14 mmol/L (5-15) Blood Urea Nitrogen 67 mg/dL (7-18) H Creatinine 3.0 MG/DL (0.55-1.30) #H Estimat Glomerular Filtration Rate 19.8 mL/min (>60) Glucose Level 187 MG/DL (74-106) H Hemoglobin A1c 6.4 % (4.3-6.0) H Uric Acid 12.1 MG/DL (2.6-7.2) H Calcium Level 7.3 MG/DL (8.5-10.1) L Phosphorus Level 5.6 MG/DL (2.5-4.9) H Magnesium Level 2.2 MG/DL (1.8-2.4) Iron Level 14 ug/dL (50-175) L Total Iron Binding Capacity 216 ug/dL (250-450) L Percent Iron Saturation 6 % (15-50) L Unsaturated Iron Binding 202 ug/dL (112-346) Ferritin 181 NG/ML (8-388) Total Bilirubin 1.7 MG/DL (0.2-1.0) H Direct Bilirubin 0.9 MG/DL (0.0-0.3) H Gamma Glutamyl Transpeptidase 50 U/L (5-85) Aspartate Amino Transf (AST/SGOT) 744 U/L (15-37) H Alanine Aminotransferase (ALT/SGPT) 679 U/L (12-78) H Alkaline Phosphatase 110 U/L (46-116) Ammonia 41 umol/L (11-32) H Total Creatine Kinase 146 U/L (26-308) Troponin I 0.499 ng/mL (0.000-0.056) C-Reactive Protein, Quantitative 4.9 mg/dL (0.00-0.90) H Pro-B-Type Natriuretic Peptide 95914 pg/mL (0-125) H Total Protein 5.6 G/DL (6.4-8.2) L Albumin 2.6 G/DL (3.4-5.0) L Globulin 3.0 g/dL Albumin/Globulin Ratio 0.9 (1.0-2.7) L Triglycerides Level 57 MG/DL (30-150) Cholesterol Level 123 MG/DL (< 200) LDL Cholesterol 94 mg/dL (<100) HDL Cholesterol 17 MG/DL (40-60) L Cholesterol/HDL Ratio 7.2 (3.3-4.4) H Lipase 284 U/L (73-393) Vitamin B12 Level > 2000 PG/ML (193-986) H Folate 19.1 NG/ML (8.6-58.9) Thyroid Stimulating Hormone (TSH) 1.428 uiU/mL (0.358-3.740) Free Thyroxine 1.81 NG/DL (0.76-1.46) H Digoxin Level < 0.3 NG/ML (0.5-2.0) L Test 05/15/20 08:42 Arterial Blood pH 7.367 (7.350-7.450) Arterial Blood Partial Pressure CO2 31.1 mmHg (35.0-45.0) L Arterial Blood Partial Pressure O2 160.3 mmHg (75.0-100.0) H Arterial Blood HCO3 17.5 mmol/L (22.0-26.0) *L Arterial Blood Oxygen Saturation 98.7 % (95-100) Arterial Blood Base Excess -6.8 (-2-2) L Amaury Test Positive Microbiology Date/Time Source Procedure Growth Status 05/13/20 18:40 Nasal Nares MRSA Culture - Final NO METHICILLIN RESISTANT STAPH AUREUS... Complete 05/13/20 18:20 Nasopharynx SARS-CoV-2 RdRp Gene Assay - Final Complete 05/13/20 18:00 Blood Blood Culture - Preliminary NO GROWTH AFTER 24 HOURS Resulted 05/13/20 17:30 Blood Blood Culture - Preliminary NO GROWTH AFTER 24 HOURS Resulted Objective HEAD AND NECK: Mild JVD.Orally intubated LUNGS: Decreased breath sounds. CARDIOVASCULAR: Shows irregularly irregular and tachycardic. S1 and S2 with no gallop. ABDOMEN: Soft. EXTREMITIES: 1+ pitting edema. Foreign Alexander MD May 15, 2020 11:03
[2020-05-15] MEDS ORDERED: SYNTHROID100 MCG ORAL (12:39)
--- NOTE | 2020-05-15 12:42 | Diagnostic Imaging Report ---
EXAM: XR Abdomen, 2 Views CLINICAL HISTORY: TUBE PLCMT TECHNIQUE: Frontal view of the abdomen/pelvis with upright view of the abdomen. COMPARISON: None FINDINGS: Hardware: Enteric tube terminates in the region of the gastric antrum. Abdomen: Nonspecific partially visualized bowel gas pattern. No free air. Cystectomy clips in the right upper quadrant. Bones: Degenerative changes of the spine. Soft tissues: Normal. Lower chest: Median sternotomy and CABG changes. Partially visualized. Right greater than left pleural effusions with patchy opacities in the right mid and lower lung. IMPRESSION: Enteric tube terminates in the region of the gastric antrum.
[2020-05-15] MEDS: Aspirin EC 81mg tab ORAL SCH (13:51)
[2020-05-15] MEDS: Levothyroxine 125mcg tab ORAL SCH (13:51)
--- NOTE | 2020-05-15 13:58 | Neurology Progress Note ---
Interim History Interim History ROS Limited/Unobtainable: Yes Interim History s/p CP arrest 05/14 night, intubated sedated on pressors Objective Physical Exam Last Vital Signs Date Time Temp Pulse Resp B/P (MAP) Pulse Ox O2 Delivery O2 Flow Rate FiO2 05/15/20 13:52 118 05/15/20 13:00 97.4 20 97/71 (80) 100 05/15/20 12:00 80 05/15/20 12:00 Bi-pap 60.0 Laboratory Tests Test 05/14/20 14:40 05/14/20 16:30 05/14/20 18:30 05/14/20 21:10 Arterial Blood pH 7.357 (7.350-7.450) 7.286 (7.350-7.450) Arterial Blood Partial Pressure CO2 27.6 mmHg (35.0-45.0) L 31.0 mmHg (35.0-45.0) L Arterial Blood Partial Pressure O2 134.2 mmHg (75.0-100.0) H 134.0 mmHg (75.0-100.0) H Arterial Blood HCO3 15.1 mmol/L (22.0-26.0) *L 14.4 mmol/L (22.0-26.0) *L Arterial Blood Oxygen Saturation 98.2 % (95-100) 97.9 % (95-100) Arterial Blood Base Excess -8.8 (-2-2) L -10.9 (-2-2) *L Amaury Test Positive Positive Urine Random Sodium < 20 mmol/L (20-110) L Random Vancomycin Level 10.3 ug/mL Test 05/15/20 00:47 05/15/20 04:10 05/15/20 08:08 05/15/20 08:42 Arterial Blood pH 7.216 (7.350-7.450) 7.367 (7.350-7.450) Arterial Blood Partial Pressure CO2 32.6 mmHg (35.0-45.0) L 31.1 mmHg (35.0-45.0) L Arterial Blood Partial Pressure O2 83.5 mmHg (75.0-100.0) 160.3 mmHg (75.0-100.0) H Arterial Blood HCO3 12.9 mmol/L (22.0-26.0) *L 17.5 mmol/L (22.0-26.0) *L Arterial Blood Oxygen Saturation 93.5 % (95-100) L 98.7 % (95-100) Arterial Blood Base Excess -13.7 (-2-2) *L -6.8 (-2-2) L Amaury Test Positive Positive White Blood Count 15.7 K/UL (4.8-10.8) #H Red Blood Count 3.92 M/UL (4.70-6.10) L Hemoglobin 11.9 G/DL (14.2-18.0) L Hematocrit 37.9 % (42.0-52.0) L Mean Corpuscular Volume 97 FL (80-99) Mean Corpuscular Hemoglobin 30.4 PG (27.0-31.0) Mean Corpuscular Hemoglobin Concent 31.5 G/DL (32.0-36.0) L Red Cell Distribution Width 13.9 % (11.6-14.8) Platelet Count 150 K/UL (150-450) Mean Platelet Volume 8.8 FL (6.5-10.1) Neutrophils (%) (Auto) % (45.0-75.0) Lymphocytes (%) (Auto) % (20.0-45.0) Monocytes (%) (Auto) % (1.0-10.0) Eosinophils (%) (Auto) % (0.0-3.0) Basophils (%) (Auto) % (0.0-2.0) Differential Total Cells Counted 100 Neutrophils % (Manual) 90 % (45-75) H Lymphocytes % (Manual) 3 % (20-45) L Monocytes % (Manual) 7 % (1-10) Eosinophils % (Manual) 0 % (0-3) Basophils % (Manual) 0 % (0-2) Band Neutrophils 0 % (0-8) Platelet Estimate Adequate Platelet Morphology Normal Hypochromasia 1+ Macrocytosis 1+ Gwen Cells Occasional Schistocytes Rare Activated Partial Thromboplast Time 45 SEC (23-33) H 48 SEC (23-33) H Sodium Level 136 MMOL/L (136-145) Potassium Level 4.1 MMOL/L (3.5-5.1) Chloride Level 104 MMOL/L (98-107) Carbon Dioxide Level 18 MMOL/L (21-32) L Anion Gap 14 mmol/L (5-15) Blood Urea Nitrogen 67 mg/dL (7-18) H Creatinine 3.0 MG/DL (0.55-1.30) #H Estimat Glomerular Filtration Rate 19.8 mL/min (>60) Glucose Level 187 MG/DL (74-106) H Hemoglobin A1c 6.4 % (4.3-6.0) H Uric Acid 12.1 MG/DL (2.6-7.2) H Calcium Level 7.3 MG/DL (8.5-10.1) L Phosphorus Level 5.6 MG/DL (2.5-4.9) H Magnesium Level 2.2 MG/DL (1.8-2.4) Iron Level 14 ug/dL (50-175) L Total Iron Binding Capacity 216 ug/dL (250-450) L Percent Iron Saturation 6 % (15-50) L Unsaturated Iron Binding 202 ug/dL (112-346) Ferritin 181 NG/ML (8-388) Total Bilirubin 1.7 MG/DL (0.2-1.0) H Direct Bilirubin 0.9 MG/DL (0.0-0.3) H Gamma Glutamyl Transpeptidase 50 U/L (5-85) Aspartate Amino Transf (AST/SGOT) 744 U/L (15-37) H Alanine Aminotransferase (ALT/SGPT) 679 U/L (12-78) H Alkaline Phosphatase 110 U/L (46-116) Ammonia 41 umol/L (11-32) H Total Creatine Kinase 146 U/L (26-308) Troponin I 0.499 ng/mL (0.000-0.056) C-Reactive Protein, Quantitative 4.9 mg/dL (0.00-0.90) H Pro-B-Type Natriuretic Peptide 03248 pg/mL (0-125) H Total Protein 5.6 G/DL (6.4-8.2) L Albumin 2.6 G/DL (3.4-5.0) L Globulin 3.0 g/dL Albumin/Globulin Ratio 0.9 (1.0-2.7) L Triglycerides Level 57 MG/DL (30-150) Cholesterol Level 123 MG/DL (< 200) LDL Cholesterol 94 mg/dL (<100) HDL Cholesterol 17 MG/DL (40-60) L Cholesterol/HDL Ratio 7.2 (3.3-4.4) H Lipase 284 U/L (73-393) Vitamin B12 Level > 2000 PG/ML (193-986) H Folate 19.1 NG/ML (8.6-58.9) Thyroid Stimulating Hormone (TSH) 1.428 uiU/mL (0.358-3.740) Free Thyroxine 1.81 NG/DL (0.76-1.46) H Digoxin Level < 0.3 NG/ML (0.5-2.0) L Head: normocophalic Neck: no rigidity EENT: benign Neurologic Exam Objective sedated intubated no movement cc 35 min Impression/Recommendations Problems: (1) Pneumonia (2) New onset atrial fibrillation (3) COVID-19 ruled out by laboratory testing (4) Aortic stenosis (5) Hypoxia (6) Altered level of consciousness (7) Rapid atrial fibrillation Diagnostic Impression sp caridac arrest, unstable on pressors Encephalopathy, likely metabolic, rule out vascular given afib RVR non focal exam Afib map > 54 cont heparin iv mri brain on hold cont Kj Ritchie MD May 15, 2020 13:58
[2020-05-15] MEDS ORDERED: MIRTAZAPINE45 MG ORAL (14:10)
[2020-05-15] MEDS ORDERED: 1/2 NS 1000ml IV ONE (14:25)
[2020-05-15] MEDS ORDERED: NS 275ml ONE ×2 (14:25→19:01)
[2020-05-15] MEDS ORDERED: Tubing IV Secondary IV ONE (14:25)
[2020-05-15] MEDS ORDERED: Sodium Bicarbonate 50ml Carp ONE (19:01)
[2020-05-15] MEDS ORDERED: Calcium Chloride 10% 10ml carpuject IVP ONE (19:01)
[2020-05-15] MEDS ORDERED: Amiodarone 150mg/3ml Amp ONE (19:01)
[2020-05-15] MEDS ORDERED: NS 500ML ONE (19:01)
[2020-05-15] MEDS ORDERED: Heparin 25,000u/D5W 500ml 500 ML IV SCH (19:30)
--- NOTE | 2020-05-15 21:59 | Emergency Room Report ---
History of Present Illness General Chief Complaint: Altered Level of Consciousness Source: Medical Record, PMD Present Illness HPI 89-year-old male admitted to ICU for shock, A. fib RVR, with findings of bilateral lower extremity DVT on heparin drip I was consulted for CODE BLUE called overhead Initial rhythm was PEA 3 rounds of chest compressions had been performed prior to my arrival. Procedure note Cardiopulmonary Resuscitation by me: See code documentation for specific details. ACLS and BLS were performed with high quality chest compressions and minimal interruptions. Any reversible causes were assessed and treated. Patient's rhythm went into pulseless V. tach twice for which she was defibrillated. Unfortunately V. tach decompensated into PEA Patient Primary team was made aware. I spoke with Dr. Leonard who states he will inform the family of the patient's passing. Please see nursing documentation for time of Allergies: Coded Allergies: No Known Allergies (Unverified , 05/13/20) COVID-19 Screening Contact w/high risk pt: No Experienced COVID-19 symptoms?: No COVID-19 Testing performed GREY INSPECTOR: No COVID-19 Screening: Negative COVID-19 Nursing Documentation-[facility] Past Medical History: No History, Except For Hx Cardiac Problems: Yes Hx Hypertension: Yes Hx Cancer: No Hx Gastrointestinal Problems: No Hx Neurological Problems: No Physical Exam Vital Signs Date Time Temp Pulse Resp B/P (MAP) Pulse Ox O2 Delivery O2 Flow Rate FiO2 05/13/20 16:02 98.1 130 20 138/98 (111) 98 Nasal Cannula 05/13/20 18:42 100 05/13/20 21:00 80.0 Medical Decision Making Diagnostic Impression: Primary Impression: Hypoxia Additional Impressions: COVID-19 ruled out by laboratory testing Altered level of consciousness Aortic stenosis Qualified Codes: I35.0 - Nonrheumatic aortic (valve) stenosis Cardiac arrest Septic shock New onset atrial fibrillation Rapid atrial fibrillation Pneumonia Qualified Codes: J18.9 - Pneumonia, unspecified organism Last Vital Signs Date Time Temp Pulse Resp B/P (MAP) Pulse Ox O2 Delivery O2 Flow Rate FiO2 05/15/20 18:49 88 27 46/36 (39) 40 05/15/20 17:30 98.4 05/15/20 17:30 100 05/15/20 16:00 Bi-pap 60.0 Disposition: Condition: Referrals: NOT CHOSEN IPA/MD,REFERRING (PCP) Nazia Mishra D.O. May 15, 2020 21:59
--- NOTE | 2020-05-15 22:19 | Surgery Progress Note ---
Surgery Progress Note Subjective Additional Comments late entry as patient seen this am was stable but later in ther evening went hypotensive and since passed sway Objective Last 24 Hour Vital Signs Date Time Temp Pulse Resp B/P (MAP) Pulse Ox O2 Delivery O2 Flow Rate FiO2 05/15/20 18:49 88 27 46/36 (39) 40 05/15/20 18:45 95 30 38/18 (25) 51 05/15/20 18:30 124 37 104/74 (84) 85 05/15/20 18:15 132 36 86 05/15/20 18:00 136 33 135/101 (112) 94 05/15/20 17:30 98.4 137 35 123/77 (92) 90 05/15/20 17:30 100 05/15/20 17:00 142 32 119/101 (107) 93 05/15/20 16:30 138 32 122/84 (97) 92 05/15/20 16:04 97/71 05/15/20 16:00 120 30 128/85 (99) 94 05/15/20 16:00 Bi-pap 60.0 05/15/20 16:00 60 05/15/20 16:00 136 05/15/20 15:30 114 20 85/68 (74) 100 05/15/20 15:26 114 20 60 05/15/20 15:00 115 20 87/72 (77) 100 05/15/20 14:30 116 20 97/64 (75) 100 05/15/20 14:00 118 20 102/79 (87) 100 05/15/20 13:52 118 05/15/20 13:30 119 20 99/71 (80) 100 05/15/20 13:00 97.4 118 20 97/71 (80) 100 05/15/20 12:30 122 20 97/54 (68) 100 05/15/20 12:00 121 23 115/78 (90) 97 05/15/20 12:00 80 05/15/20 12:00 Bi-pap 60.0 05/15/20 12:00 109 05/15/20 11:38 124 26 100 80 102 20 80 05/15/20 11:30 127 24 107/75 (86) 94 05/15/20 11:00 130 28 127/58 (81) 90 05/15/20 10:30 130 31 106/82 (90) 90 05/15/20 10:00 80 05/15/20 10:00 131 29 115/93 (100) 92 05/15/20 09:30 137 32 140/90 (107) 87 05/15/20 09:00 129 27 101/51 (68) 91 05/15/20 09:00 118 97/71 05/15/20 08:30 111 20 93/65 (74) 96 05/15/20 08:00 100 05/15/20 08:00 Bi-pap 60.0 05/15/20 08:00 106 20 100/78 (85) 97 05/15/20 08:00 106 05/15/20 07:45 105 21 98 Mechanical Ventilator 100 114 20 100 05/15/20 07:30 106 20 97/61 (73) 96 05/15/20 07:00 98.4 101 20 107/75 (86) 94 05/15/20 07:00 106 20 90/57 (68) 96 05/15/20 06:30 98.8 112 24 91/71 (78) 95 05/15/20 06:15 118 20 92/65 (74) 95 05/15/20 06:15 119 25 87/59 (68) 93 05/15/20 06:02 112 20 92/65 (74) 95 05/15/20 06:00 118 20 77/34 (48) 95 05/15/20 05:30 125 20 129/49 (75) 100 05/15/20 05:00 110 20 111/72 (85) 100 05/15/20 04:45 118 20 88/58 (68) 100 05/15/20 04:30 113 20 95/74 (81) 98 05/15/20 04:15 115 20 90/67 (75) 97 05/15/20 04:00 100 05/15/20 04:00 115 05/15/20 04:00 Bi-pap 60.0 05/15/20 04:00 97.2 117 21 102/77 (85) 97 05/15/20 03:45 111 20 100/64 (76) 97 05/15/20 03:30 115 23 77/45 (56) 100 05/15/20 03:27 77/45 05/15/20 03:00 120 22 72/56 (61) 97 05/15/20 02:47 120 21 100 05/15/20 02:00 112 20 85/59 (68) 98 05/15/20 01:27 115 23 100 Mechanical Ventilator 100 112 20 100 05/15/20 01:00 116 21 79/53 (62) 05/15/20 00:00 129 05/15/20 00:00 Bi-pap 60.0 05/15/20 00:00 100 05/15/20 00:00 98.8 118 23 83/60 (68) 05/14/20 23:30 100 05/14/20 23:20 128 21 100 05/14/20 23:20 128 21 98 Mechanical Ventilator 100 05/14/20 23:05 114 25 116/59 94 05/14/20 23:00 107 33 87/38 (54) 91 05/14/20 22:33 94 25 95 40 I&O Intake and Output 05/14/20 05/15/20 19:00 07:00 Intake Total 1193.711 ml 1288.857 ml Output Total 415 ml 245 ml Balance 778.711 ml 1043.857 ml Intake Oral 0 ml 0 ml IV Total 1193.711 ml 1288.857 ml Output Urine Total 415 ml 245 ml Dressing: dry, other Wound: clean Cardiovascular: RSR Respiratory: decreased breath sounds Abdomen: non-tender, non-distended Extremities: no cyanosis, other Laboratory Tests Test 05/15/20 00:47 05/15/20 04:10 05/15/20 08:08 05/15/20 08:42 Arterial Blood pH 7.216 (7.350-7.450) 7.367 (7.350-7.450) Arterial Blood Partial Pressure CO2 32.6 mmHg (35.0-45.0) L 31.1 mmHg (35.0-45.0) L Arterial Blood Partial Pressure O2 83.5 mmHg (75.0-100.0) 160.3 mmHg (75.0-100.0) H Arterial Blood HCO3 12.9 mmol/L (22.0-26.0) *L 17.5 mmol/L (22.0-26.0) *L Arterial Blood Oxygen Saturation 93.5 % (95-100) L 98.7 % (95-100) Arterial Blood Base Excess -13.7 (-2-2) *L -6.8 (-2-2) L Amaury Test Positive Positive White Blood Count 15.7 K/UL (4.8-10.8) #H Red Blood Count 3.92 M/UL (4.70-6.10) L Hemoglobin 11.9 G/DL (14.2-18.0) L Hematocrit 37.9 % (42.0-52.0) L Mean Corpuscular Volume 97 FL (80-99) Mean Corpuscular Hemoglobin 30.4 PG (27.0-31.0) Mean Corpuscular Hemoglobin Concent 31.5 G/DL (32.0-36.0) L Red Cell Distribution Width 13.9 % (11.6-14.8) Platelet Count 150 K/UL (150-450) Mean Platelet Volume 8.8 FL (6.5-10.1) Neutrophils (%) (Auto) % (45.0-75.0) Lymphocytes (%) (Auto) % (20.0-45.0) Monocytes (%) (Auto) % (1.0-10.0) Eosinophils (%) (Auto) % (0.0-3.0) Basophils (%) (Auto) % (0.0-2.0) Differential Total Cells Counted 100 Neutrophils % (Manual) 90 % (45-75) H Lymphocytes % (Manual) 3 % (20-45) L Monocytes % (Manual) 7 % (1-10) Eosinophils % (Manual) 0 % (0-3) Basophils % (Manual) 0 % (0-2) Band Neutrophils 0 % (0-8) Platelet Estimate Adequate Platelet Morphology Normal Hypochromasia 1+ Macrocytosis 1+ Gwen Cells Occasional Schistocytes Rare Activated Partial Thromboplast Time 45 SEC (23-33) H 48 SEC (23-33) H Sodium Level 136 MMOL/L (136-145) Potassium Level 4.1 MMOL/L (3.5-5.1) Chloride Level 104 MMOL/L (98-107) Carbon Dioxide Level 18 MMOL/L (21-32) L Anion Gap 14 mmol/L (5-15) Blood Urea Nitrogen 67 mg/dL (7-18) H Creatinine 3.0 MG/DL (0.55-1.30) #H Estimat Glomerular Filtration Rate 19.8 mL/min (>60) Glucose Level 187 MG/DL (74-106) H Hemoglobin A1c 6.4 % (4.3-6.0) H Uric Acid 12.1 MG/DL (2.6-7.2) H Calcium Level 7.3 MG/DL (8.5-10.1) L Phosphorus Level 5.6 MG/DL (2.5-4.9) H Magnesium Level 2.2 MG/DL (1.8-2.4) Iron Level 14 ug/dL (50-175) L Total Iron Binding Capacity 216 ug/dL (250-450) L Percent Iron Saturation 6 % (15-50) L Unsaturated Iron Binding 202 ug/dL (112-346) Ferritin 181 NG/ML (8-388) Total Bilirubin 1.7 MG/DL (0.2-1.0) H Direct Bilirubin 0.9 MG/DL (0.0-0.3) H Gamma Glutamyl Transpeptidase 50 U/L (5-85) Aspartate Amino Transf (AST/SGOT) 744 U/L (15-37) H Alanine Aminotransferase (ALT/SGPT) 679 U/L (12-78) H Alkaline Phosphatase 110 U/L (46-116) Ammonia 41 umol/L (11-32) H Total Creatine Kinase 146 U/L (26-308) Troponin I 0.499 ng/mL (0.000-0.056) C-Reactive Protein, Quantitative 4.9 mg/dL (0.00-0.90) H Pro-B-Type Natriuretic Peptide 27169 pg/mL (0-125) H Total Protein 5.6 G/DL (6.4-8.2) L Albumin 2.6 G/DL (3.4-5.0) L Globulin 3.0 g/dL Albumin/Globulin Ratio 0.9 (1.0-2.7) L Triglycerides Level 57 MG/DL (30-150) Cholesterol Level 123 MG/DL (< 200) LDL Cholesterol 94 mg/dL (<100) HDL Cholesterol 17 MG/DL (40-60) L Cholesterol/HDL Ratio 7.2 (3.3-4.4) H Lipase 284 U/L (73-393) Vitamin B12 Level > 2000 PG/ML (193-986) H Folate 19.1 NG/ML (8.6-58.9) Thyroid Stimulating Hormone (TSH) 1.428 uiU/mL (0.358-3.740) Free Thyroxine 1.81 NG/DL (0.76-1.46) H Digoxin Level < 0.3 NG/ML (0.5-2.0) L Test 05/15/20 17:43 05/15/20 18:54 Activated Partial Thromboplast Time > 150 SEC (23-33) *H POC Whole Blood Glucose 134 MG/DL (74-106) H Plan Problems: (1) Abnormal LFTs Assessment & Plan: PATIENT AWAKE. NON-VERBAL. APPEARS AGITATED. ARRIVED TO FIND LEFT ARM OUT OF RESTRAINT AND ALL IV'S REMOVED. PRIMARY NURSE NOTIFIED. NO BREAKDOWN OF MARYLOU PROMINENCES NOTED. RIGHT FOREARM -SKIN TEAR MEASURES 5.0X0.6X0.1CM. RECOMMEND- APPLY XEROFORM GAUZE AND COVER WITH OPTIFOAM DRESSING. REPLACE EVERY 3 DAYS. ALSO RECOMMEND: REPOSITION AT LEAST EVERY 2 HOURS OR TOLERATED ELEVATE HEELS WITH PILLOWS CONTINUE WOUND PREVENTION PROTOCOLS Liver: The liver is increased in echogenicity, consistent with hepatic steatosis. No intrahepatic bile duct dilation. Gallbladder: Status post cholecystectomy. Common bile duct: The common bile duct is not dilated and measures 3 mm. Pancreas: The pancreas is not visualized well enough for reliable assessment. Kidneys: The right kidney measures 9.3 cm. No hydronephrosis or nephrolithiasis. The left kidney measures 9.4 cm. No hydronephrosis or nephrolithiasis. Spleen: The spleen measures 7.5 cm. Aorta and IVC: The abdominal aorta and inferior vena cava are within normal limits. The aorta measures 1.0 cm. Pleural space: Small bilateral pleural effusions, incidentally noted. IMPRESSION: Hepatic steatosis. Cholecystectomy. Nondilated common bile duct measuring 3 mm. No hydronephrosis or nephrolithiasis. Small bilateral pleural effusions. liver dysfucntion no obstruction no acute surgery iv fluids trend labs (2) New onset atrial fibrillation (3) COVID-19 ruled out by laboratory testing (4) Pneumonia (5) Acute on chronic renal failure (6) Aortic stenosis (7) Hypoxia (8) Altered level of consciousness (9) Rapid atrial fibrillation Additional Comments patient undergoing work up and care unfortunately since seen this AM has declined and passed Shukri Ellison May 15, 2020 22:19
--- NOTE | 2020-05-15 23:00 | Consultation ---
DATE OF CONSULTATION: 05/14/2020 INFECTIOUS DISEASE CONSULTATION CONSULTING PHYSICIAN: Miguelina Coley MD ATTENDING PHYSICIAN: Dave Leonard MD REFERRING PHYSICIAN: Dave Leonard MD REASON FOR CONSULTATION: Pneumonia, sepsis, leukocytosis. CHIEF COMPLAINT: Patient's chief complaint coming to the hospital was atrial fibrillation with rapid ventricular response. HISTORY OF PRESENT ILLNESS: This is an 89-year-old male who comes to [facility] with rapid atrial fibrillation and hypoxia. Chest x-ray shows possible pneumonia. Patient has what looks like confusion prior to admission and certainly could be at risk for aspiration pneumonia versus community-acquired pneumonia. Patient I believe comes from home. He was also unable ambulate. Patient is in the ICU at [facility]. Infectious Disease consultation is requested. Patient was empirically started on doxycycline, Vanco, and Zosyn. Patient also with elevated creatinine. MAR was noted. Orders noted. Notes and records reviewed. Patient will be continued on Vanco, Zosyn, and doxycycline for pneumonia, possible sepsis, elevated white count. MAR was noted. Ordered noted. Notes and records reviewed. Patient was again seen in the ICU. REVIEW OF SYSTEMS: CONSTITUTIONAL: Patient has generalized fatigue, weakness. He is responsive. He has hypoxia, shortness of breath. He has no fevers currently when I saw him. I believe he is not on pressors. He is not on a vent. He has some shortness of breath. HEAD AND NECK: No head pain, neck pain. CARDIAC: No chest pain or pressors. He had rapid atrial fibrillation. He had elevated heart rate and atrial fibrillation. GASTROINTESTINAL: No nausea, vomiting, or diarrhea. GENITOURINARY: He did have a Alvarado. PULMONARY: He has shortness of breath. No vent. SKIN: No rash. EXTREMITIES: No extremity pain. NEUROLOGIC: No seizures. Generalized fatigue. No focal weakness. He did come in with confusion. MUSCULOSKELETAL: No leg pain, neck pain. No joint pain. PAST MEDICAL HISTORY: Congestive heart failure. Patient also has a history of hypertension, cardiac surgery, BPH, atrial fibrillation, CAD, hypothyroidism. No history of diabetes mentioned. ALLERGIES: Patient has no known drug allergies. No antibiotic allergies. SOCIAL HISTORY: Negative for smoking, alcohol, or drug abuse. FAMILY HISTORY: Noncontributory. Negative for tuberculosis or cancer. MEDICATIONS: Upon reviewing the MAR, patient is on following medications. Patient was placed on Zosyn doxycycline, vancomycin, antibiotics. Patient is on pantoprazole, digoxin, norepinephrine, levalbuterol, lorazepam, levothyroxine, metoprolol, finasteride, clopidogrel, aspirin, Zofran. Outside medications noted and reconciliated. PHYSICAL EXAMINATION: VITAL SIGNS: Temperature 98.2, pulse rate 124, respiratory rate 30, blood pressure 116/83. Patient is on BiPAP 60%. GENERAL: Alert, short of breath. HEAD AND NECK: Oral exam, no thrush. Eye exam, no icterus. Normocephalic. Neck is supple. No JVD. HEART: Regular and irregular. No obvious gallop or murmur. ABDOMEN: Soft. Positive bowel sounds. Nontender. LUNGS: Few bilateral rhonchi, rales, and crackles. SKIN: No rash or dermatitis. MUSCULOSKELETAL: No effusion. Legs are without cellulitis. PERIPHERAL VASCULAR: No cyanosis or gangrene. GENITOURINARY: No CVA tenderness. I believe he did have a Alvarado. LINE SITES: Without phlebitis. NEUROLOGIC: Generalized weakness. Alert, responsive. LABORATORY DATA: UA, 0 to 2 white cells. Creatinine 1.9. LFTs noted. On admission, white count 12.0, hemoglobin 13.3. White count when I saw him was 9.2, hemoglobin 12.8. Cultures are pending. Blood cultures negative to date. COVID testing negative. MRSA screen negative. IMAGING STUDIES: Chest x-ray showed effusions, interstitial airspace edema versus infiltrates is noted and reviewed bilaterally. ASSESSMENT AND PLAN: 1. Patient has pneumonia, possible aspiration pneumonia with history of confusion, possible community-acquired pneumonia. Patient comes from home. Patient has possible sepsis, elevated white count. At this time, we will continue Zosyn, Vanco, and doxycycline. Continue Vanco, Zosyn, doxycycline for pneumonia including aspiration pneumonia and community-acquired pneumonia and also, sepsis, elevated white count. Check cultures, labs, chest x-ray. 2. Acute renal failure. 3. Elevated creatinine. 4. Anemia. 5. Hypothyroidism. 6. . 7. Hypertension. Blood pressure treatment per primary care team. 8. ICU care. 9. CAD. 10. CHF. 11. Rapid atrial fibrillation. 12. Cardiac surgery. 13. BPH. 14. Confusion. 15. Continue treatment per primary consultants. 16. No known allergies. 17. Social history is negative. 18. Family history is noncontributory. 19. MAR is noted. 20. Case is discussed with RN. Thank you, I will follow. Miguelina Coley M.D. DR: KISHORE JOB#: [id number] CC:
[2020-05-16] MEDS ORDERED: Zosyn 3.375gm q12h **Extended infusion IVPB SCH ×2
--- NOTE | 2020-05-19 13:01 | Discharge Summary ---
Discharge Summary Discharge Summary _ SUMMARY DATE OF ADMISSION: 05/13/2020 DATE OF EXPIRATION: 05/15/2020 REASON FOR ADMISSION: 89 years old male with past medical history of congestive heart failure, hypertension, cardiac surgery years ago, BPH, was brought by paramedics due to altered mental status. Last night patient was confused and was not able to ambulate to the bathroom. Usually he was able to do so. Patient was confused in the morning as well as per his son, patient did not understand what his son was asking him He refused to go to the hospital , and son subsequently called paramedics. Upon evaluation patient was tachycardic with heart rate 130 and hypoxic , in respiratory distress . Patient initially was placed on nasal cannula , but due to increased work of breathing, later was placed on the BiPAP. Laboratory work-up revealed leukocytosis WBC 12, hemoglobin 13.3 , hematocrit 41.1, platelet count 188. ABG revealed metabolic acidosis with pH 7.27, bicarb 17.1. BUN 51, creatinine 1.7. Sodium 133. CO2 20. Glucose 117. Troponin minimally elevated 0.062, ECG showed atrial fibrillation with rapid ventricular response. Urinalysis revealed +2 protein, +1 leukocyte esterase , no evidence of UTI. Chest x-ray revealed dense consolidation, involving much of the right middle and lower lung, likely pneumonia ; right greater than the left pleural effusion ; mild interstitial edema. Rapid COVID-19 was negative. Patient admitted to ICU for further management. CONSULTANTS: wheel shop supervisor Dr. Costa neurologist Dr. Quinteros ID specialist GI specialist Dr. Bowman car wash supervisor Dr. Miller [facility] COURSE: Patient admitted to ICU. Patient initially was on the BiPAP. Settings titrated to keep pulse oximetry above 92% ; pulmonary toilet provided Patient was followed -up with chest x-ray and ABG. Patient started on antibiotic as per ID specialist recommendation. Patient was on Cardizem and heparin drip atrial fibrillation with rapid ve ntricular response. Heavy Equipment Operator followed. Patient sustained cardiopulmonary arrest 05/15 director of early childhood and required urgent intubation. Patient was also hypotensive and required placement of central line and initiation of pressors. Pressor/Levophed titrated to keep mean arterial blood pressure above 65. Cardizem drip later was discontinued, heart rate was controlled with beta- emily and digoxin. Venous duplex revealed bilateral lower extremity DVT. Echocardiogram revealed reduced ejection fraction 35 to 40%, severe aortic stenosis, severe mitral regurgitation and severe pulmonary hypertension. IV fluids decreased to 50 cc/h after discussion with wheel shop supervisor and car wash supervisor. Dual antiplatelet therapy continued. Blood culture came back negative. Neurologist seen and evaluated patient due to acute encephalopathy, which likely was metabolic. MRI of the brain was ordered, but was on hold given patient instability. Renal parameters and electrolytes were closely monitored, electrolytes corrected as needed , nephrotoxins were avoided. Renal ultrasound revealed no evidence of hydronephrosis. Patient started on Proscar and Flomax. LFT were closely monitored, likely due to shock liver. Surgeon seen and evaluated patient due to transaminitis and carefully reviewed imaging: no evidence of obstruction , no need for acute surgical intervention. Abdominal ultrasound revealed hepatic steatosis , but no biliary dilatation. Aspiration precaution maintained. NG tube was inserted for medication and nutrition as per GI specialist recommendation. Overall prognosis was poor. Creatinine worsened from 1.9 on 05/14 up to 3.0 on 05/15. Second troponin was 0.056 , the next troponin 0.499. On 05/15 CODE BLUE was called due to patient being in pulseless electrical activity. ACLS protocol initiated. Unfortunately old resuscitative efforts appeared to be futile. Patient was pronounced at 19:02 on 05/15. 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
== END 2020-05-15 19:02 | disposition expired | DRG 871 ==
LOC: EDBD 15:59 → EMR 16:15 → ICU 17:14 → EDBEDREQSVC 18:10 → EDBEDREQ 18:10
PROC: 0BH17EZ Insertion of Endotracheal Airway into Trachea, Via Natural or Artificial Opening (ICD-10-PCS; principal; 2020-05-15)
PROC: 5A1935Z Respiratory Ventilation, Less than 24 Consecutive Hours (ICD-10-PCS; principal; 2020-05-15)
PROC: 06HM33Z Insertion of Infusion Device into Right Femoral Vein, Percutaneous Approach (ICD-10-PCS; principal; 2020-05-15)
DX: A41.9 Sepsis, unspecified organism (principal); J18.9 Pneumonia, unspecified organism; G93.41 Metabolic encephalopathy; R65.21 Severe sepsis with septic shock; J96.01 Acute respiratory failure with hypoxia; I21.4 Non-ST elevation (NSTEMI) myocardial infarction; K72.00 Acute and subacute hepatic failure without coma; J69.0 Pneumonitis due to inhalation of food and vomit; N17.9 Acute kidney failure, unspecified; I13.0 Hypertensive heart and chronic kidney disease with heart failure and stage 1 through stage 4 chronic kidney disease, or unspecified chronic kidney disease; I82.413 Acute embolism and thrombosis of femoral vein, bilateral; J90 Pleural effusion, not elsewhere classified; I48.91 Unspecified atrial fibrillation; I25.10 Atherosclerotic heart disease of native coronary artery without angina pectoris; N18.9 Chronic kidney disease, unspecified; I50.9 Heart failure, unspecified; Z95.1 Presence of aortocoronary bypass graft; I35.0 Nonrheumatic aortic (valve) stenosis; I34.0 Nonrheumatic mitral (valve) insufficiency; Z20.828 Contact with and (suspected) exposure to other viral communicable diseases; R13.10 Dysphagia, unspecified; E03.9 Hypothyroidism, unspecified; E78.00 Pure hypercholesterolemia, unspecified; D64.9 Anemia, unspecified
CPT/HCPCS: 36415; 71045; 74018; 76700; 76770; 80053; 80061; 80162; 80202; 81003; 82140; 82248; 82550; 82607; 82728; 82746; 82803; 82962; 82977; 83036; 83540; 83550; 83605; 83615; 83690; 83735; 83880; 84100; 84300; 84439; 84443; 84484; 84550; 85007; 85025; 85379; 85610; 85730; 86140; 87040; 87081; 92950; 93005; 93306; 93970; 94002; 94003; 94640; 94660; 94664; 96365; 96368; 96375; 96376; 99291; 99292; J0171; J3490; J7030; U0002